=== PATIENT | female | born 1985 | race Caucasian/White ===

== ENCOUNTER 2016-07-23 19:57 | Emergency (ER) | payer MEDICAID ==
[2016-07-23] MEDS ORDERED: Sodium Chloride 0.9% 10 ML Syringe FLUSH PRN ×2 (20:54→21:14)
[2016-07-23] MEDS ORDERED: Ondansetron 4 MG/2 ML SDV IVPUSH ONE (20:59)
[2016-07-23] MEDS ORDERED: HYDROmorphone 1 MG/ML Syringe IVPUSH ONE (20:59)
[2016-07-23] MEDS ORDERED: Lactated Ringers 1,000 ML IV SCH (21:00)
--- NOTE | 2016-07-23 21:01 | EDM.PDOC ---
ED HPI GENERAL MEDICAL PROBLEM - General Chief Complaint: Fever Stated Complaint: FLANK PAIN Time Seen by Provider: 07/23/16 20:46 Source of Information: Reports: Patient, RN Notes Reviewed History Limitations: Reports: No Limitations - History of Present Illness INITIAL COMMENTS - FREE TEXT/NARRATIVE: 31-year-old female presents emergency department day complaint of right flank pain, she has a known history of nephrolithiasis has had lithotripsy and removal in the past, last CT scan earlier this year showed residual stones. For this particular event she states her last couple weeks she has had leg pain predominantly in the right she was trying to tolerate the pain push fluids awfully the past the stone unfortunately she woke up this morning significantly more pain and developed a fever does have nausea no vomiting normal bowel movements Bilateral Flank Pain Score (Numeric/FACES): 7 - Related Data Allergies Allergy/AdvReac Type Severity Reaction Status Date / Time No Known Allergies Allergy Verified 04/26/13 02:18 Home Meds: Home Meds Acetaminophen [Tylenol Extra Strength] 1,000 mg PO Q8H PRN 04/26/13 [History] Hydrocodone/Acetaminophen [Hydrocodon-Acetaminophen 5-325] 07/23/16 [History] Past Medical History [employer] History: Reports: - Infectious Disease History Infectious Disease History: Reports: Chicken Pox - Past Surgical History GI Surgical History: Reports: Cholecystectomy Other Endocrine Surgeries/Procedures: pituitary tumor Social & Family History - Tobacco Use Smoking Status *Q: Current Every Day Smoker Years of Tobacco use: 14 Packs/Tins Daily: 0.5 - Caffeine Use Caffeine Use: Reports: Soda - Alcohol Use Days Per Week of Alcohol Use: 0 - Recreational Drug Use Recreational Drug Use: No ED ROS GENERAL - Review of Systems Review Of Systems: See Below Constitutional: Reports: Fever, Chills HEENT: Reports: No Symptoms Respiratory: Reports: No Symptoms Cardiovascular: Reports: No Symptoms GI/Abdominal: Reports: Abdominal Pain, Nausea, Vomiting : Reports: Flank Pain Musculoskeletal: Reports: No Symptoms Skin: Reports: No Symptoms Neurological: Reports: No Symptoms ED EXAM, GI/ABD - Physical Exam Exam: See Below Text/Narrative:: General: Female, ill-appearing but not in any distress, alert and oriented x3 HEENT: head is atraumatic normocephalic, eyes pupils equal round reactive to light, sclera clear no conjunctivitis appreciated. Ears tympanic membranes clear and coffey landmarks and light reflex are present bilaterally canals are clear. Nose no septal deviation, nares are clear, no blood present. Mouth mucosa is moist and pink no erythema or exudate noted in soft palate, tongue is midline uvula is midline, dentition is intact. Neck: Supple no thyromegaly no tracheal deviation. Nodes: Cervical nodes subclavicular nodes nontender no palpable lymphadenopathy noted. Lungs: clear to auscultation bilaterally with symmetrical respirations, no adventitious noise appreciated. CV: Regular rate and rhythm S1 and S2 appreciated no murmurs rubs or gallops noted. Abdomen: Soft, generalized tenderness to palpation, no palpable masses or organomegaly appreciated, no distention no guarding bowel sounds are present, both right and left flank pain CVA area Neuro: Cranial nerves II through XII grossly intact Skin: Warm and dry, intact Extremities: No lower extremity edema appreciated, Course - Vital Signs Last Recorded V/S: Last Vital Signs Temp 101.2 F H 07/23/16 22:25 Pulse 93 07/23/16 22:25 Resp 17 07/23/16 22:25 BP 141/94 H 07/23/16 22:25 Pulse Ox 94 L 07/23/16 22:25 - Orders/Labs/Meds Orders: Active Orders 24 hr Category Date Time Status Peripheral IV Care [RC] . DIRECTED Care 07/23/16 20:54 Active Abdomen Pelvis w Cont [CT] Urgent Exams 07/23/16 20:54 Taken CULTURE BLOOD [BC] Urgent Lab 07/23/16 21:00 Received CULTURE BLOOD [BC] Urgent Lab 07/23/16 21:05 Received Iopamidol [Isovue-300 (61%)] Med 07/23/16 21:15 Active 150 ml IV . DIRECTED Lactated Ringers [Ringers, Lactated] 1,000 ml Med 07/23/16 21:00 Active IV ASDIRECTED Levofloxacin/Dextrose 5%-Water [Levaquin in D5W 750 MG/ Med 07/23/16 23:17 Ordered 150 ML] 750 mg Premix Bag 1 bag IV ONETIME Sodium Chloride 0.9% [Saline Flush] Med 07/23/16 20:54 Active 10 ml FLUSH ASDIRECTED PRN Sodium Chloride 0.9% [Saline Flush] Med 07/23/16 21:14 Active 10 ml FLUSH ONETIME PRN Blood Culture x2 Reflex Set [OM.PC] Urgent Oth 07/23/16 20:54 Ordered Peripheral IV Insertion Adult [OM.PC] Urgent Oth 07/23/16 20:54 Ordered Medication Orders Lactated Ringer's (Ringers, Lactated) 1,000 mls @ 500 mls/hr IV ASDIRECTED ERIC Last Admin: 07/23/16 21:12 Dose: 500 mls/hr Levofloxacin/Dextrose 750 mg/ (Premix) 150 mls @ 100 mls/hr IV ONETIME ONE Stop: 07/24/16 00:46 Iopamidol (Isovue-300 (61%)) 150 ml IV . DIRECTED ERIC Last Admin: 07/23/16 21:41 Dose: 150 ml Sodium Chloride (Saline Flush) 10 ml FLUSH ASDIRECTED PRN PRN Reason: Keep Vein Open Last Admin: 07/23/16 21:04 Dose: 10 ml Sodium Chloride (Saline Flush) 10 ml FLUSH ONETIME PRN PRN Reason: PER RADIOLOGY PROTOCOL Last Admin: 07/23/16 21:40 Dose: 10 ml Labs: Laboratory Tests 07/23/16 07/23/16 07/23/16 Range/Units 21:00 21:00 21:00 WBC 3.6 L (4.5-11.0) K/uL RBC 4.92 (3.30-5.50) M/uL Hgb 14.0 (12.0-15.0) g/dL Hct 40.2 (36.0-48.0) % MCV 82 (80-98) fL MCH 29 (27-31) pg MCHC 35 (32-36) % Plt Count 139 L (150-400) K/uL Neut % (Auto) 81 H (36-66) % Lymph % (Auto) 14 L (24-44) % [place] % (Auto) 5 (2-6) % Eos % (Auto) 0 L (2-4) % Baso % (Auto) 0 (0-1) % Sodium 137 L (140-148) mmol/L Potassium 3.5 L (3.6-5.2) mmol/L Chloride 102 (100-108) mmol/L Carbon Dioxide 28 (21-32) mmol/L Anion Gap 10.5 (5.0-14.0) mmol/L BUN 6 L (7-18) mg/dL Creatinine 0.8 (0.6-1.0) mg/dL Est Cr Clr Drug Dosing 87.99 mL/min Estimated GFR (MDRD) > 60 (>60) Glucose 97 (74-106) mg/dL Lactic Acid 2.3 H (0.4-2.0) mmol/L Calcium 8.4 L (8.5-10.1) mg/dL Total Bilirubin 0.4 (0.2-1.0) mg/dL AST 21 (15-37) U/L ALT 34 (12-78) U/L Alkaline Phosphatase 64 (46-116) U/L Total Protein 7.1 (6.4-8.2) g/dL Albumin 3.7 (3.4-5.0) g/dL Globulin 3.4 (2.3-3.5) g/dL Albumin/Globulin Ratio 1.1 L (1.2-2.2) Urine Color Urine Appearance Urine pH (4.5-8.0) Ur Specific [place] (1.008-1.030) Urine Protein (NEGATIVE) mg/dL Urine Glucose (UA) (NEGATIVE) mg/dL Urine Ketones (NEGATIVE) mg/dL Urine Occult Blood (NEGATIVE) Urine Nitrite (NEGATIVE) Urine Bilirubin (NEGATIVE) Urine Urobilinogen (NORMAL) mg/dL Ur Leukocyte Esterase (NEGATIVE) Urine RBC (0-5) Urine WBC (0-5) Ur Epithelial Cells Amorphous Sediment Urine Bacteria Urine Mucus 07/23/ Range/Units 21:05 WBC (4.5-11.0) K/uL RBC (3.30-5.50) M/uL Hgb (12.0-15.0) g/dL Hct (36.0-48.0) % MCV (80-98) fL MCH (27-31) pg MCHC (32-36) % Plt Count (150-400) K/uL Neut % (Auto) (36-66) % Lymph % (Auto) (24-44) % [place] % (Auto) (2-6) % Eos % (Auto) (2-4) % Baso % (Auto) (0-1) % Sodium (140-148) mmol/L Potassium (3.6-5.2) mmol/L Chloride (100-108) mmol/L Carbon Dioxide (21-32) mmol/L Anion Gap (5.0-14.0) mmol/L BUN (7-18) mg/dL Creatinine (0.6-1.0) mg/dL Est Cr Clr Drug Dosing mL/min Estimated GFR (MDRD) (>60) Glucose (74-106) mg/dL Lactic Acid (0.4-2.0) mmol/L Calcium (8.5-10.1) mg/dL Total Bilirubin (0.2-1.0) mg/dL AST (15-37) U/L ALT (12-78) U/L Alkaline Phosphatase (46-116) U/L Total Protein (6.4-8.2) g/dL Albumin (3.4-5.0) g/dL Globulin (2.3-3.5) g/dL Albumin/Globulin Ratio (1.2-2.2) Urine Color Yellow Urine Appearance Slightly cloudy Urine pH 7.0 (4.5-8.0) Ur Specific [place] 1.010 (1.008-1.030) Urine Protein Negative (NEGATIVE) mg/dL Urine Glucose (UA) Normal (NEGATIVE) mg/dL Urine Ketones Negative (NEGATIVE) mg/dL Urine Occult Blood Negative (NEGATIVE) Urine Nitrite Negative (NEGATIVE) Urine Bilirubin Negative (NEGATIVE) Urine Urobilinogen 1 (NORMAL) mg/dL Ur Leukocyte Esterase Negative (NEGATIVE) Urine RBC Not seen (0-5) Urine WBC 0-5 (0-5) Ur Epithelial Cells Moderate Amorphous Sediment Not seen Urine Bacteria Moderate Urine Mucus Few Meds: Medications Generic Name Dose Route Start Last Admin Trade Name Freq PRN Reason Stop Dose Admin Lactated Ringer's 1,000 mls @ 500 mls/hr 07/23/16 21:00 07/23/16 21:12 Ringers, Lactated IV 500 mls/hr ASDIRECTED ERIC Administration Levofloxacin/Dextrose 750 mg/ 150 mls @ 100 mls/hr 07/23/16 23:17 Premix IV 07/24/16 00:46 ONETIME ONE Iopamidol 150 ml 07/23/16 21:15 07/23/16 21:41 Isovue-300 (61%) IV 150 ml . DIRECTED ERIC Administration Sodium Chloride 10 ml 07/23/16 20:54 07/23/16 21:04 Saline Flush FLUSH 10 ml ASDIRECTED PRN Administration Keep Vein Open Sodium Chloride 10 ml 07/23/16 21:14 07/23/16 21:40 Saline Flush FLUSH 10 ml ONETIME PRN Administration PER RADIOLOGY PROTOCOL Discontinued Medications Generic Name Dose Route Start Last Admin Trade Name Freq PRN Reason Stop Dose Admin Acetaminophen 650 mg 07/23/16 21:04 07/23/16 21:11 Tylenol PO 07/23/16 21:05 650 mg NOW ONE Administration Hydromorphone HCl 1 mg 07/23/16 20:59 07/23/16 21:06 Dilaudid IVPUSH 07/23/16 21:00 1 mg ONETIME ONE Administration Sodium Chloride 85 mls @ 3 mls/sec 07/23/16 21:14 07/23/16 21:40 Normal Saline IV 07/23/16 21:15 3 mls/sec ONETIME ONE Administration Ondansetron HCl 4 mg 07/23/16 20:59 07/23/16 21:04 Zofran IVPUSH 07/23/16 21:00 4 mg ONETIME ONE Administration Departure - Departure Time of Disposition: 00:22 Disposition: Home, Self-Care 01 Condition: good Clinical Impression: Pyelonephritis - Discharge Information Forms: ED Department Discharge Additional Instructions: Take full course of antibiotics, use Zofran as needed for nausea and vomiting symptoms, use ibuprofen for baseline pain control use Percocet as needed for breakthrough pain, Please followup with your primary care provider in 3-5 days if not better, please call return to the emergency department with worsening of symptoms. - My Orders Last 24 Hours: My Active Orders 07/23/16 20:54 Peripheral IV Care [RC] . DIRECTED Abdomen Pelvis w Cont [CT] Urgent Sodium Chloride 0.9% [Saline Flush] 10 ml FLUSH ASDIRECTED PRN Blood Culture x2 Reflex Set [OM.PC] Urgent Peripheral IV Insertion Adult [OM.PC] Urgent 07/23/16 21:00 CULTURE BLOOD [BC] Urgent Lactated Ringers [Ringers, Lactated] 1,000 ml IV ASDIRECTED 07/23/16 21:05 CULTURE BLOOD [BC] Urgent 07/23/16 21:14 Sodium Chloride 0.9% [Saline Flush] 10 ml FLUSH ONETIME PRN 07/23/16 21:15 Iopamidol [Isovue-300 (61%)] 150 ml IV . DIRECTED 07/23/16 23:17 Levofloxacin/Dextrose 5%-Water [Levaquin in D5W 750 MG/150 ML] 750 mg Premix Bag 1 bag IV ONETIME - Assessment/Plan Last 24 Hours: My Active Orders 07/23/16 20:54 Peripheral IV Care [RC] . DIRECTED Abdomen Pelvis w Cont [CT] Urgent Sodium Chloride 0.9% [Saline Flush] 10 ml FLUSH ASDIRECTED PRN Blood Culture x2 Reflex Set [OM.PC] Urgent Peripheral IV Insertion Adult [OM.PC] Urgent 07/23/16 21:00 CULTURE BLOOD [BC] Urgent Lactated Ringers [Ringers, Lactated] 1,000 ml IV ASDIRECTED 07/23/16 21:05 CULTURE BLOOD [BC] Urgent 07/23/16 21:14 Sodium Chloride 0.9% [Saline Flush] 10 ml FLUSH ONETIME PRN 07/23/16 21:15 Iopamidol [Isovue-300 (61%)] 150 ml IV . DIRECTED 07/23/16 23:17 Levofloxacin/Dextrose 5%-Water [Levaquin in D5W 750 MG/150 ML] 750 mg Premix Bag 1 bag IV ONETIME Plan: Assessment Acuity = acute Site and laterality = suspicious for pyelonephritis on the right Etiology = probable bacterial cause Manifestations = none Location of injury = home Lab values = WBC low at 3.6 consistent with leukopenia platelets low at 139 consistent with a thrombocytopenia, sodium low at 137 consistent hyponatremia potassium low at 2.5 consistent hypokalemia lactic acid mildly elevated at 2.3 consistent lactic acidosis urinalysis unremarkable CT scan shows enlarged liver consistent fatty liver disease, multiple subcentimeter foci kidney bilaterally involving ovarian cyst right side small amount of free fluid the abdominal cavity Plan I did review lab results CT scan results with her offered her hospital admission she declined therefore did 750 mg levofloxacin IV x1 discharge home with levofloxacin 10 days combination Percocet total #10 tablets for pain and Zofran for nausea and vomiting symptoms follow up with primary care in 3-5 days for reevaluation Patient was in agreement with the plan all questions were answered, they were instructed to return to the emergency department or call for worsening symptoms. This note was dictated using dragon voice recognition software please call with any questions.
[2016-07-23] MEDS ORDERED: Acetaminophen 325 MG Tab PO ONE (21:04)
[2016-07-23] MEDS ORDERED: Iopamidol 612 MG/ML 150 ML Bottle IV SCH (21:15)
[2016-07-23] MEDS ORDERED: Levofloxacin/Dextrose 5%-Water 750 MG in Premix Bag 1 BAG IV ONE (23:17)
[2016-07-24 00:37] VITALS: BP 134/84
== END 2016-07-24 00:37 | disposition home or self-care (01) ==
LOC: JP.ED 19:57
DX: N12 Tubulo-interstitial nephritis, not specified as acute or chronic (principal); F17.210 Nicotine dependence, cigarettes, uncomplicated; Z90.49 Acquired absence of other specified parts of digestive tract; Z98.890 Other specified postprocedural states
CPT/HCPCS: 36415; 74177; 80053; 81001; 83605; 85025; 87040; 96361; 96365; 96375; 99284; A9270; J1170; J1956; J2405; J7030; J7050; J7120

== ENCOUNTER 2016-07-25 18:49 | Emergency (ER) | payer MEDICAID ==
[2016-07-25] MEDS ORDERED: Lactated Ringers 1,000 ML IV ONE (20:03)
[2016-07-25] MEDS ORDERED: Sodium Chloride 0.9% 10 ML Syringe FLUSH PRN (20:03)
--- NOTE | 2016-07-25 20:11 | EDM.PDOC ---
ED HPI GENERAL MEDICAL PROBLEM - General Chief Complaint: Abdominal Pain Stated Complaint: ABD PAIN VOMITING FEVER Time Seen by Provider: 07/25/16 19:53 Source of Information: Reports: Patient, Old Records, RN Notes Reviewed History Limitations: Reports: No Limitations - History of Present Illness INITIAL COMMENTS - FREE TEXT/NARRATIVE: 31-year-old female presents emergency department today for fever and not feeling well, she was evaluated in the emergency department 2 days prior by myself at that time she had fever and productive of right flank pain initially lab work did show elevated white count CT scan showed no pyelonephritis or kidney stone however she does have a history of urinary tract infections elected to treat her empirically with levofloxacin. She states she is not necessarily any worse but she is not better she still feels poorly still having fevers intermittent vomiting and generalized body aches and fatigue, she was evaluated in the clinic today felt to be dehydrated do to the vomiting was sent to the emergency department for further evaluation. 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: Psychiatric History: Reports: Anxiety, Depression, PTSD - Infectious Disease History Infectious Disease History: Reports: Chicken Pox - Past Surgical History GI Surgical History: Reports: Cholecystectomy Female Surgical History: Reports: Other (See Below) Other Female Surgeries/Procedures: partial hysterectomy kidney stone removal Other Endocrine Surgeries/Procedures: pituitary tumor Social & Family History - Tobacco Use Smoking Status *Q: Current Every Day Smoker Years of Tobacco use: 14 Packs/Tins Daily: 0.5 - Caffeine Use Caffeine Use: Reports: Soda - Alcohol Use Days Per Week of Alcohol Use: 0 - Recreational Drug Use Recreational Drug Use: No ED ROS GENERAL - Review of Systems Review Of Systems: See Below Constitutional: Reports: Fever, Chills, Weakness, Fatigue HEENT: Reports: No Symptoms Respiratory: Reports: No Symptoms Cardiovascular: Reports: No Symptoms GI/Abdominal: Reports: Abdominal Pain, Diarrhea, Flatus, Vomiting : Reports: No Symptoms Musculoskeletal: Reports: Muscle Pain Skin: Reports: No Symptoms Neurological: Reports: No Symptoms Psychiatric: Reports: No Symptoms ED EXAM, GENERAL - Physical Exam Exam: See Below Free Text/Narrative:: General: Female, not in any distress, alert and oriented x3 HEENT: head is atraumatic normocephalic, eyes pupils equal round reactive to light, sclera clear no conjunctivitis appreciated. Ears tympanic membranes clear and coffey landmarks and light reflex are present bilaterally canals are clear. Nose no septal deviation, nares are clear, no blood present. Mouth mucosa is moist and pink no erythema or exudate noted in soft palate, tongue is midline uvula is midline, dentition is intact. Neck: Supple no thyromegaly no tracheal deviation. Nodes: Cervical nodes subclavicular nodes nontender no palpable lymphadenopathy noted. Lungs: clear to auscultation bilaterally with symmetrical respirations, no adventitious noise appreciated. CV: Regular rate and rhythm S1 and S2 appreciated no murmurs rubs or gallops noted. Abdomen: Soft, generalized tenderness to palpation but not impressive, no palpable masses or organomegaly appreciated, no distention no guarding bowel sounds are present, . Neuro: Cranial nerves II through XII grossly intact Skin: Warm and dry, intact Extremities: No lower extremity edema appreciated, pedal pulse is +2. Course - Vital Signs Last Recorded V/S: Last Vital Signs Temp 96.3 F 07/25/16 21:18 Pulse 69 07/25/16 22:15 Resp 16 07/25/16 22:15 BP 148/102 H 07/25/16 22:15 Pulse Ox 97 07/25/16 22:15 - Orders/Labs/Meds Orders: Active Orders 24 hr Category Date Time Status Peripheral IV Care [RC] . DIRECTED Care 07/25/16 20:03 Active CULTURE BLOOD [BC] Stat Lab 07/25/16 20:02 Stop Req Sodium Chloride 0.9% [Saline Flush] Med 07/25/16 20:03 Active 10 ml FLUSH ASDIRECTED PRN Peripheral IV Insertion Adult [OM.PC] Urgent Oth 07/25/16 20:03 Ordered Medication Orders Sodium Chloride (Saline Flush) 10 ml FLUSH ASDIRECTED PRN PRN Reason: Keep Vein Open Last Admin: 07/25/16 20:17 Dose: 10 ml Labs: Laboratory Tests 07/25/16 07/25/16 07/25/16 Range/Units 20:02 20:02 20:02 WBC 3.3 L (4.5-11.0) K/uL RBC 5.20 (3.30-5.50) M/uL Hgb 14.7 (12.0-15.0) g/dL Hct 42.2 (36.0-48.0) % MCV 81 (80-98) fL MCH 28 (27-31) pg MCHC 35 (32-36) % Plt Count 126 L (150-400) K/uL Neut % (Auto) 57 (36-66) % Lymph % (Auto) 29 (24-44) % [place] % (Auto) 9 H (2-6) % Eos % (Auto) 2 (2-4) % Baso % (Auto) 3 H (0-1) % Sodium 143 (140-148) mmol/L Potassium 3.4 L (3.6-5.2) mmol/L Chloride 103 (100-108) mmol/L Carbon Dioxide 31 (21-32) mmol/L Anion Gap 12.4 (5.0-14.0) mmol/L BUN 9 (7-18) mg/dL Creatinine 0.8 (0.6-1.0) mg/dL Est Cr Clr Drug Dosing 87.99 mL/min Estimated GFR (MDRD) > 60 (>60) Glucose 90 (74-106) mg/dL Lactic Acid 1.1 (0.4-2.0) mmol/L Calcium 9.3 (8.5-10.1) mg/dL Total Bilirubin 0.5 (0.2-1.0) mg/dL AST 34 (15-37) U/L ALT 60 D (12-78) U/L Alkaline Phosphatase 78 (46-116) U/L Creatine Kinase (26-192) U/L C-Reactive Protein 2.27 H (0.0-0.3) mg/dL Total Protein 7.8 (6.4-8.2) g/dL Albumin 4.1 (3.4-5.0) g/dL Globulin 3.7 H (2.3-3.5) g/dL Albumin/Globulin Ratio 1.1 L (1.2-2.2) TSH, Ultra Sensitive (0.358-3.740) uIU/mL Urine Color Urine Appearance Urine pH (4.5-8.0) Ur Specific [place] (1.008-1.030) Urine Protein (NEGATIVE) mg/dL Urine Glucose (UA) (NEGATIVE) mg/dL Urine Ketones (NEGATIVE) mg/dL Urine Occult Blood (NEGATIVE) Urine Nitrite (NEGATIVE) Urine Bilirubin (NEGATIVE) Urine Urobilinogen (NORMAL) mg/dL Ur Leukocyte Esterase (NEGATIVE) Urine RBC (0-5) Urine WBC (0-5) Ur Epithelial Cells Amorphous Sediment Urine Bacteria Urine Mucus Urine Other 07/25/16 07/25/16 07/25/16 Range/Units 20:02 20:06 20:13 WBC (4.5-11.0) K/uL RBC (3.30-5.50) M/uL Hgb (12.0-15.0) g/dL Hct (36.0-48.0) % MCV (80-98) fL MCH (27-31) pg MCHC (32-36) % Plt Count (150-400) K/uL Neut % (Auto) (36-66) % Lymph % (Auto) (24-44) % [place] % (Auto) (2-6) % Eos % (Auto) (2-4) % Baso % (Auto) (0-1) % Sodium (140-148) mmol/L Potassium (3.6-5.2) mmol/L Chloride (100-108) mmol/L Carbon Dioxide (21-32) mmol/L Anion Gap (5.0-14.0) mmol/L BUN (7-18) mg/dL Creatinine (0.6-1.0) mg/dL Est Cr Clr Drug Dosing mL/min Estimated GFR (MDRD) (>60) Glucose (74-106) mg/dL Lactic Acid (0.4-2.0) mmol/L Calcium (8.5-10.1) mg/dL Total Bilirubin (0.2-1.0) mg/dL AST (15-37) U/L ALT (12-78) U/L Alkaline Phosphatase (46-116) U/L Creatine Kinase 53 (26-192) U/L C-Reactive Protein (0.0-0.3) mg/dL Total Protein (6.4-8.2) g/dL Albumin (3.4-5.0) g/dL Globulin (2.3-3.5) g/dL Albumin/Globulin Ratio (1.2-2.2) TSH, Ultra Sensitive 8.799 H (0.358-3.740) uIU/mL Urine Color [place] Urine Appearance Cloudy Urine pH 6.0 (4.5-8.0) Ur Specific [place] 1.020 (1.008-1.030) Urine Protein 30 H (NEGATIVE) mg/dL Urine Glucose (UA) Normal (NEGATIVE) mg/dL Urine Ketones Negative (NEGATIVE) mg/dL Urine Occult Blood Negative (NEGATIVE) Urine Nitrite Negative (NEGATIVE) Urine Bilirubin Small (NEGATIVE) Urine Urobilinogen 8 (NORMAL) mg/dL Ur Leukocyte Esterase Small (NEGATIVE) Urine RBC 0-5 (0-5) Urine WBC 0-5 (0-5) Ur Epithelial Cells Few Amorphous Sediment Few Urine Bacteria Few Urine Mucus Numerous Urine Other See note Meds: Medications Generic Name Dose Route Start Last Admin Trade Name Freq PRN Reason Stop Dose Admin Sodium Chloride 10 ml 07/25/16 20:03 07/25/16 20:17 Saline Flush FLUSH 10 ml ASDIRECTED PRN Administration Keep Vein Open Discontinued Medications Generic Name Dose Route Start Last Admin Trade Name Freq PRN Reason Stop Dose Admin Lactated Ringer's 1,000 mls @ 999 mls/hr 07/25/16 20:03 07/25/16 20:17 Ringers, Lactated IV 07/25/16 21:03 999 mls/hr BOLUS ONE Administration Doxycycline Hyclate 100 mg/ 100 mls @ 100 mls/hr 07/25/16 21:52 07/25/16 22: 20 Sodium Chloride IV 07/25/16 22:51 100 mls/hr ONETIME ONE Administration Ketorolac Tromethamine 30 mg 07/25/16 21:51 07/25/16 22:20 Toradol IVPUSH 07/25/16 21:52 30 mg ONETIME ONE Administration Departure - Departure Time of Disposition: 23:46 Disposition: Home, Self-Care 01 Condition: good Clinical Impression: Tick-borne disease - Discharge Information Forms: ED Department Discharge Additional Instructions: stop levofloxacin, take full course of doxycycline, Please followup with your primary care provider in 3-5 days if not better, please call return to the emergency department with worsening of symptoms. - My Orders Last 24 Hours: My Active Orders 07/25/16 20:02 CULTURE BLOOD [BC] Stat 07/25/16 20:03 Peripheral IV Care [RC] . DIRECTED Sodium Chloride 0.9% [Saline Flush] 10 ml FLUSH ASDIRECTED PRN Peripheral IV Insertion Adult [OM.PC] Urgent - Assessment/Plan Last 24 Hours: My Active Orders 07/25/16 20:02 CULTURE BLOOD [BC] Stat 07/25/16 20:03 Peripheral IV Care [RC] . DIRECTED Sodium Chloride 0.9% [Saline Flush] 10 ml FLUSH ASDIRECTED PRN Peripheral IV Insertion Adult [OM.PC] Urgent Plan: Assessment Acuity = acute Site and laterality = suspicious for tickborne illness Etiology = possibly anaplasmosis Manifestations = body aches, fever, nausea, vomiting, diarrhea Location of injury = home Lab values = WBC low at 3.3 consistent with leukopenia potassium low at 3.4 consistent with hypokalemia CMP mildly elevated 2.27 thyroid abnormal of the high at 8.8 suspicious for hypothyroidism Plan I did discuss lab values with her she was given 1 dose of doxycycline IV as well as 30 mg of Toradol she felt and improvement with the body aches with Toradol I did discuss hospital admission can she declined Will try outpatient antibiotics follow up with primary care 3-5 days no improvement, doxycycline 14 days Patient was in agreement with the plan all questions were answered, they were instructed to return to the emergency department or call for worsening symptoms. This note was dictated using [employer] voice recognition software please call with any questions.
[2016-07-25] MEDS ORDERED: Ketorolac 30 MG/ML SDV IVPUSH ONE (21:51)
[2016-07-25] MEDS ORDERED: Doxycycline 100 MG in Sodium Chloride 0.9% 100 ML IV ONE (21:52)
[2016-07-26 00:56] VITALS: BP 154/103
== END 2016-07-26 00:08 | disposition home or self-care (01) ==
LOC: JP.ED 18:49
DX: A93.8 Other specified arthropod-borne viral fevers (principal); F17.210 Nicotine dependence, cigarettes, uncomplicated; Z90.49 Acquired absence of other specified parts of digestive tract; Z90.710 Acquired absence of both cervix and uterus; F43.10 Post-traumatic stress disorder, unspecified
CPT/HCPCS: 36415; 80053; 81001; 82550; 83605; 84443; 85025; 86140; 87040; 87804; 96361; 96365; 96375; 99284; J1885; J7030; J7050; J7120

== ENCOUNTER 2018-02-28 12:44 | Emergency (ER) | payer MEDICAID ==
--- NOTE | 2018-02-28 14:26 | EDM.PDOC ---
<Fatmata Warner - Last Filed: 02/28/18 17:44> ED HPI GENERAL MEDICAL PROBLEM - General Chief Complaint: Cardiovascular Problem Stated Complaint: NAUSEOUS, HBP, HEADACHE, DIZZY Time Seen by Provider: 02/28/18 14:29 Source of Information: Reports: Patient History Limitations: Reports: No Limitations - History of Present Illness INITIAL COMMENTS - FREE TEXT/NARRATIVE: pt was seen at the clinic yesterday with a tooth infection. She was placed on augmentin and tramodol. She woke up this am and she was very nauseated and dixxy. She felt like the room was spinning. Her bp was up at the clinic and it continues to be up. Onset: Today, Sudden Duration: Hour(s): Location: Reports: Abdomen, Other (pt has vertigo. ) Associated Symptoms: Reports: Nausea/Vomiting, Other ( vertigo. 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: Neurological History: Reports: Migraines, Seizure Psychiatric History: Reports: Anxiety, Depression, PTSD, Suicide Attempt - Infectious Disease History Infectious Disease History: Reports: Chicken Pox - Past Surgical History GI Surgical History: Reports: Cholecystectomy Female Surgical History: Reports: Other (See Below) Other Female Surgeries/Procedures: partial hysterectomy kidney stone removal Other Endocrine Surgeries/Procedures: pituitary tumor Social & Family History - Tobacco Use Smoking Status *Q: Current Every Day Smoker Years of Tobacco use: 16 Packs/Tins Daily: 0.5 - Caffeine Use Caffeine Use: Reports: Soda - Recreational Drug Use Recreational Drug Use: No ED ROS GENERAL - Review of Systems Review Of Systems: See Below Constitutional: Reports: Decreased Appetite, Other (pt has been vomiting. ) HEENT: Reports: No Symptoms Respiratory: Reports: No Symptoms Cardiovascular: Reports: No Symptoms Endocrine: Reports: No Symptoms GI/Abdominal: Reports: Nausea, Vomiting, Other (marked vertigo. ) : Reports: No Symptoms Musculoskeletal: Reports: No Symptoms Skin: Reports: No Symptoms Neurological: Reports: Headache Psychiatric: Reports: Anxiety ED EXAM, GENERAL - Physical Exam Exam: See Below Free Text/Narrative:: pt arrived with a history of marked vomiting and vertigo. She states each time she turns her hesd her headache gets bad and the room spins. She has had a pituitary tumor in the past. She did not take her bp med this am because of the vomiting. Exam Limited By: No Limitations General Appearance: Alert, Moderate Distress, Other (pupils are equal and reactive. ) Ears: Normal TMs Nose: Normal Inspection Throat/Mouth: Other (pt has an infection in her rt upper molar area. Yesterday she was put on augmentin and trasmodol. She was very dizzy and she was violently vomiting this am. Her bp was up at the clinic yesterday and it remains up today. ) Head: Atraumatic Neck: Normal Inspection Respiratory/Chest: No Respiratory Distress Cardiovascular: Regular Rate, Rhythm GI/Abdominal: Soft, Non-Tender (Female) Exam: Deferred Rectal (Female) Exam: Deferred Back Exam: Normal Inspection Extremities: Normal Inspection Neurological: Alert, Oriented, Normal Cognition Psychiatric: Anxious Course - Vital Signs Last Recorded V/S: Last Vital Signs Temp 36.1 C 02/28/18 13:50 Pulse 82 02/28/18 18:12 Resp 16 02/28/18 18:12 BP 140/89 02/28/18 18:12 Pulse Ox 95 02/28/18 18:12 - Orders/Labs/Meds Orders: Active Orders 24 hr Category Date Time Status Head wo Cont [CT] Stat Exams 02/28/18 16:57 Taken Sodium Chloride 0.9% [Normal Saline] 1,000 ml Med 02/28/18 14:30 Active IV ASDIRECTED Medication Orders Sodium Chloride (Normal Saline) 1,000 mls @ 999 mls/hr IV ASDIRECTED ERIC Last Admin: 02/28/18 14:58 Dose: 999 mls/hr Labs: Laboratory Tests 02/28/18 02/28/18 02/28/18 Range/Units 14:29 14:29 18:12 WBC 9.9 (4.5-11.0) K/uL RBC 5.22 (3.30-5.50) M/uL Hgb 14.9 (12.0-15.0) g/dL Hct 42.2 (36.0-48.0) % MCV 81 (80-98) fL MCH 29 (27-31) pg MCHC 35 (32-36) % Plt Count 248 (150-400) K/uL Neut % (Auto) 87 H (36-66) % Lymph % (Auto) 8 L (24-44) % Becker % (Auto) 4 (2-6) % Eos % (Auto) 1 L (2-4) % Baso % (Auto) 0 (0-1) % Sodium 140 (140-148) mmol/L Potassium 3.6 (3.6-5.2) mmol/L Chloride 100 (100-108) mmol/L Carbon Dioxide 30 (21-32) mmol/L Anion Gap 10.0 (5.0-14.0) mmol/L BUN 8 (7-18) mg/dL Creatinine 0.8 (0.6-1.0) mg/dL Est Cr Clr Drug Dosing 87.18 mL/min Estimated GFR (MDRD) > 60 (>60) Glucose 110 H (74-106) mg/dL Calcium 9.4 (8.5-10.1) mg/dL Total Bilirubin 0.5 (0.2-1.0) mg/dL AST 33 (15-37) U/L ALT 67 (12-78) U/L Alkaline Phosphatase 71 (46-116) U/L C-Reactive Protein 1.90 H (0.0-0.3) mg/dL Total Protein 7.6 (6.4-8.2) g/dL Albumin 3.9 (3.4-5.0) g/dL Globulin 3.7 H (2.3-3.5) g/dL Albumin/Globulin Ratio 1.1 L (1.2-2.2) Meds: Medications Generic Name Dose Route Start Last Admin Trade Name Freq PRN Reason Stop Dose Admin Sodium Chloride 1,000 mls @ 999 mls/hr 02/28/18 14:30 02/28/18 14:58 Normal Saline IV 999 mls/hr ASDIRECTED ERIC Administration Discontinued Medications Generic Name Dose Route Start Last Admin Trade Name Mario PRN Reason Stop Dose Admin Hydromorphone HCl 0.5 mg 02/28/18 16:39 02/28/18 16:48 Dilaudid IVPUSH 02/28/18 16:40 0.5 mg ONETIME ONE Administration Ceftriaxone Sodium 1 gm/ 50 mls @ 100 mls/hr 02/28/18 14:28 02/28/18 14:58 Sodium Chloride IV 02/28/18 14:57 100 mls/hr ONETIME ONE Administration Ketorolac Tromethamine 30 mg 02/28/18 15:26 02/28/18 15:35 Toradol IVPUSH 02/28/18 15:27 30 mg ONETIME ONE Administration Lorazepam 0.5 mg 02/28/18 14:27 02/28/18 14:59 Ativan IVPUSH 02/28/18 14:28 0.5 mg ONETIME ONE Administration Meclizine HCl 25 mg 02/28/18 15:22 02/28/18 15:35 Antivert PO 02/28/18 15:23 25 mg ONETIME ONE Administration Metoprolol Succinate 50 mg 02/28/18 17:31 02/28/18 17:37 Toprol Xl PO 02/28/18 17:32 50 mg ONETIME ONE Administration Ondansetron HCl 4 mg 02/28/18 14:27 02/28/18 14:59 Zofran IVPUSH 02/28/18 14:28 4 mg ONETIME ONE Administration Ondansetron HCl 4 mg 02/28/18 16:11 02/28/18 16:20 Zofran IVPUSH 02/28/18 16:12 4 mg ONETIME ONE Administration Departure - Departure Disposition: Home, Self-Care 01 Clinical Impression: Vertigo Sinusitis Qualifiers: Sinusitis location: unspecified location Chronicity: acute Recurrence: non- recurrent Qualified Code(s): J01.90 - Acute sinusitis, unspecified Headache Qualifiers: Headache type: unspecified Headache chronicity pattern: acute headache Intractability: not intractable Qualified Code(s): R51 - Headache Instructions: Sinusitis, Adult, [id number], Vertigo, [id number] Referrals: Sophie Unger NP [Primary Care Provider] - Forms: ED Department Discharge <Alvarez Muñiz - Last Filed: 02/28/18 18:58> Course - Vital Signs Text/Narrative:: Feeling good enough to try it at home. Departure - Departure Time of Disposition: 19:00 Condition: Fair
[2018-02-28] MEDS ORDERED: Ondansetron 4 MG/2 ML SDV IVPUSH ONE ×2 (14:27→16:11)
[2018-02-28] MEDS ORDERED: LORazepam 2 MG/ML SDV IVPUSH ONE (14:27)
[2018-02-28] MEDS ORDERED: cefTRIAXone 1 GM in Sodium Chloride 0.9% 50 ML IV ONE (14:28)
[2018-02-28] MEDS ORDERED: Sodium Chloride 0.9% 1,000 ML IV SCH (14:30)
[2018-02-28] MEDS ORDERED: Meclizine 25 MG Tab PO ONE (15:22)
[2018-02-28] MEDS ORDERED: Ketorolac 30 MG/ML SDV IVPUSH ONE (15:26)
[2018-02-28] MEDS ORDERED: HYDROmorphone 0.5 MG/0.5 ML Syringe IVPUSH ONE (16:39)
[2018-02-28] MEDS ORDERED: Metoprolol Succinate 50 MG Tab.ER PO ONE (17:31)
[2018-02-28 18:13] VITALS: BP 140/89
== END 2018-02-28 19:07 | disposition home or self-care (01) ==
LOC: JP.ED 12:44
DX: J01.90 Acute sinusitis, unspecified (principal); R51 Headache; R42 Dizziness and giddiness; I10 Essential (primary) hypertension; F17.210 Nicotine dependence, cigarettes, uncomplicated; Z79.899 Other long term (current) drug therapy
CPT/HCPCS: 36415; 70450; 80053; 85025; 86140; 96365; 96375; 96376; 99284; A9270; J0696; J1170; J1885; J2060; J2405; J7030; J7050

== ENCOUNTER 2018-03-06 22:32 | Emergency (ER) | payer MEDICAID ==
--- NOTE | 2018-03-06 23:25 | EDM.PDOC ---
ED HPI GENERAL MEDICAL PROBLEM - General Chief Complaint: Chest Pain Stated Complaint: CHEST PAINS Time Seen by Provider: 03/06/18 22:45 Source of Information: Reports: Patient, Family History Limitations: Reports: No Limitations - History of Present Illness INITIAL COMMENTS - FREE TEXT/NARRATIVE: 32-year-old female with some very nonspecific unusual symptoms of nausea, headache, left sided paresthesias and dizziness with intermittent chest pains for the past several weeks. Tonight she was having more chest pain than usual and came into the emergency room. She also feels short of breath with activity. She has hypertension, has been treated for since she was young and her blood pressures are running higher this week than normal. The chest pains are brief, running 30-40 seconds and 10 to be left anterior. She was in the emergency room 6 days ago with similar symptoms, and had a fairly complete workup. She is diagnosed with sinusitis and vertigo. A normal head CT other than sinusitis was done. 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 (see below) Other Treatments PAYROLL TAX SPECIALIST: Antibiotic, BP med Mid Chest Pain Score (Numeric/FACES): 6 - Related Data Allergies Allergy/AdvReac Type Severity Reaction Status Date / Time No Known Allergies Allergy Verified 03/06/18 22:43 Home Meds: Home Meds Amoxicillin/Clavulanate K [Augmentin 875-125 MG] 1 tab PO BID 02/28/18 [History] Metoprolol Succinate [Toprol Xl] 50 mg PO DAILY 02/28/18 [History] Past Medical History HEENT History: Reports: Other (See Below) Other HEENT History: dental abcess Cardiovascular History: Reports: Hypertension Gastrointestinal History: Reports: Cholelithiasis 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 SERVICES WORKER History: menorrhagia with irregular cycle Neurological History: Reports: Migraines, Seizure Psychiatric History: Reports: Anxiety, Depression, PTSD, Suicide Attempt Endocrine/Metabolic History: Reports: Obesity/BMI 30+ - Infectious Disease History Infectious Disease History: Reports: Chicken Pox - Past Surgical History GI Surgical History: Reports: Cholecystectomy Female Surgical History: Reports: Other (See Below) Other Female Surgeries/Procedures: partial hysterectomy kidney stone removal Endocrine Surgical History: Reports: Other (See Below) Other Endocrine Surgeries/Procedures: pituitary tumor Social & Family History - Tobacco Use Smoking Status *Q: Current Every Day Smoker Years of Tobacco use: 15 Packs/Tins Daily: 0.5 Second Hand Smoke Exposure: Yes - Caffeine Use Caffeine Use: Reports: Soda - Recreational Drug Use Recreational Drug Use: No ED ROS GENERAL - Review of Systems Review Of Systems: See Below Constitutional: Reports: Decreased Appetite, Weight Loss. Denies: Fever, Chills HEENT: Reports: Sinus Problem (Recent diagnosis of sinusitis). Denies: Ear Pain Respiratory: Reports: Shortness of Breath Cardiovascular: Reports: Chest Pain (Especially with activity brief recurring small bouts of chest pain) GI/Abdominal: Denies: Nausea, Vomiting Skin: Reports: No Symptoms Neurological: Reports: Headache (Especially left-sided) Psychiatric: Reports: Anxiety ED EXAM, GENERAL - Physical Exam Exam: See Below Exam Limited By: No Limitations General Appearance: Alert, No Apparent Distress Eye Exam: Bilateral Eye: Normal Inspection Head: Atraumatic Neck: Normal Inspection Respiratory/Chest: No Respiratory Distress, Lungs Clear Cardiovascular: Regular Rate, Rhythm GI/Abdominal: Soft, Tender (Reacts with tenderness to palpation in the epigastric area, no guarding) Extremities: Normal Inspection. No: Pedal Edema Neurological: Alert, Oriented Skin Exam: Warm, Dry EKG INTERPRETATION EKG Date: 03/06/18 Rhythm: NSR Course - Vital Signs Last Recorded V/S: Last Vital Signs Temp 96.8 F 03/06/18 22:37 Pulse 88 03/07/18 00:35 Resp 14 03/07/18 00:35 BP 181/114 H 03/07/18 00:35 Pulse Ox 98 03/07/18 00:35 - Orders/Labs/Meds Orders: Active Orders 24 hr Category Date Time Status EKG Documentation Completion [RC] ASDIRECTED Care 03/06/18 23:02 Active Chest 2V [CR] Routine Exams 03/06/18 23:03 Taken Saline Lock Insert [OM.PC] Routine Oth 03/06/18 23:31 Ordered EKG 12 Lead [EK] Routine Ther 03/06/18 23:01 Ordered Labs: Laboratory Tests 03/06/18 03/06/18 03/06/18 Range/Units 23:15 23:15 23:15 ESR (0-25) mm/hr Puncture Site L brachial ABG pH 7.525 H (7.350-7.450) ABG pCO2 30.8 L (35.0-42.0) mmHg ABG pO2 66.6 L (75.0-100.0) mmHg ABG HCO3 25.3 (22.0-26.0) mmol/L ABG Total CO2 21.7 (21.0-25.0) mmol/L ABG O2 Saturation 95.1 (95.0-98.0) % ABG O2 Content 18.1 (15.0-23.0) %vol ABG Base Excess 3.5 mm/L ABG Hemoglobin 14.1 (12.0-16.0) g/dL ABG Oxyhemoglobin 91.3 % ABG Carboxyhemoglobin 3.4 H (0.0-1.6) % ABG Methemoglobin 0.6 % O2 Delivery Device Room air Sodium 140 (140-148) mmol/L Potassium 3.4 L (3.6-5.2) mmol/L Chloride 102 (100-108) mmol/L Carbon Dioxide 25 (21-32) mmol/L Anion Gap 16.4 H (5.0-14.0) mmol/L BUN 9 (7-18) mg/dL Creatinine 0.7 (0.6-1.0) mg/dL Est Cr Clr Drug Dosing 99.63 mL/min Estimated GFR (MDRD) > 60 (>60) Glucose 122 H (74-106) mg/dL Calcium 9.4 (8.5-10.1) mg/dL Troponin I < 0.017 (0.000-0.056) ng/mL 03/06/18 Range/Units 23:15 ESR 11 (0-25) mm/hr Puncture Site ABG pH (7.350-7.450) ABG pCO2 (35.0-42.0) mmHg ABG pO2 (75.0-100.0) mmHg ABG HCO3 (22.0-26.0) mmol/L ABG Total CO2 (21.0-25.0) mmol/L ABG O2 Saturation (95.0-98.0) % ABG O2 Content (15.0-23.0) %vol ABG Base Excess mm/L ABG Hemoglobin (12.0-16.0) g/dL ABG Oxyhemoglobin % ABG Carboxyhemoglobin (0.0-1.6) % ABG Methemoglobin % O2 Delivery Device Sodium (140-148) mmol/L Potassium (3.6-5.2) mmol/L Chloride (100-108) mmol/L Carbon Dioxide (21-32) mmol/L Anion Gap (5.0-14.0) mmol/L BUN (7-18) mg/dL Creatinine (0.6-1.0) mg/dL Est Cr Clr Drug Dosing mL/min Estimated GFR (MDRD) (>60) Glucose (74-106) mg/dL Calcium (8.5-10.1) mg/dL Troponin I (0.000-0.056) ng/mL Meds: Medications Discontinued Medications Generic Name Dose Route Start Last Admin Trade Name Freq PRN Reason Stop Dose Admin Labetalol HCl 20 mg 03/06/18 23:31 03/07/18 00:01 Normodyne IVPUSH 03/06/18 23:32 Not Given ONETIME ONE Protocol Labetalol HCl Confirm 03/06/18 23:38 03/06/18 23:54 Normodyne Administered 03/06/18 23:39 20 mg Dose Administration 20 mg .ROUTE .STK-MED ONE Labetalol HCl 20 mg 03/06/18 23:44 03/06/18 23:54 Normodyne IVPUSH 03/06/18 23:45 20 mg ONETIME ONE Administration Protocol Sodium Chloride 10 ml 03/06/18 23:31 03/06/18 23:50 Saline Flush FLUSH 10 ml ASDIRECTED PRN Administration Keep Vein Open - Re-Assessments/Exams Free Text/Narrative Re-Assessment/Exam: 03/06/18 23:24 An EKG was done which was completely normal. I reviewed the patient's records from 6 days ago and it was a fairly complete workup. I asked her if she's been feeling poorly continuously since being seen, when her commented she felt "good last night". It turns out she went out with friends to the [place] and played bingo so she must have been feeling fairly normal. A BMP was repeated , ABGs, two-view chest x-ray, sedimentation rate and troponin were obtained. 03/06/18 23:32 While waiting for labs, blood pressure was done and it was 209/111. A saline lock was then done and 20 mg of IV labetalol ordered. 03/07/18 00:16 Two-view chest x-ray was normal. ABG showed a low CO2 an alkalosis, but also mildly decreased PO2. Sedimentation rate was normal, chemistry profile normal. Troponin was 0. After the 20 mg of IV labetalol patient's blood pressure improved to 170/100. She'll be discharged, informed to increase her metoprolol to twice daily and return on Friday if not improving. At that time we'll consider a chest CT to rule out PE or hospitalization until her blood pressure is under control. She can return sooner if worsening. Departure - Departure Time of Disposition: 00:41 Disposition: Home, Self-Care 01 Condition: Good Clinical Impression: Headache Qualifiers: Headache type: unspecified Headache chronicity pattern: acute headache Intractability: not intractable Qualified Code(s): R51 - Headache Hypertension Qualifiers: Hypertension type: essential hypertension Qualified Code(s): I10 - Essential ( primary) hypertension - Discharge Information Instructions: Managing Your Hypertension Referrals: PCP,None [Primary Care Provider] - Forms: ED Department Discharge Care Plan Goals: Avoid any extra salt intake, take metoprolol twice daily, and recheck on Friday if not improving satisfactorily. Return sooner if you feel you're worsening despite the increase in medication. - My Orders Last 24 Hours: My Active Orders 03/06/18 23:01 EKG 12 Lead [EK] Routine 03/06/18 23:02 EKG Documentation Completion [RC] ASDIRECTED 03/06/18 23:03 Chest 2V [CR] Routine 03/06/18 23:31 Saline Lock Insert [OM.PC] Routine - Assessment/Plan Last 24 Hours: My Active Orders 03/06/18 23:01 EKG 12 Lead [EK] Routine 03/06/18 23:02 EKG Documentation Completion [RC] ASDIRECTED 03/06/18 23:03 Chest 2V [CR] Routine 03/06/18 23:31 Saline Lock Insert [OM.PC] Routine
[2018-03-06] MEDS ORDERED: Labetalol 100 MG/20 ML MDV IVPUSH ONE ×2 (23:31→23:44)
[2018-03-06] MEDS ORDERED: Sodium Chloride 0.9% 10 ML Syringe FLUSH PRN (23:31)
[2018-03-06] MEDS: Labetalol 20 MG/4 ML Syringe ONE ×2 (23:53→23:54)
[2018-03-07 00:35] VITALS: BP 181/114
--- NOTE | 2018-03-09 09:05 | CR ---
CHEST: 2 view CLINICAL HISTORY:Dyspnea COMPARISON:2007 FINDINGS: The heart size, pulmonary vascular and hilar structures are normal. No infiltrate effusion or pneumothorax is seen. IMPRESSION: No acute cardiopulmonary process.
== END 2018-03-07 00:46 | disposition home or self-care (01) ==
LOC: JP.ED 22:32
DX: I10 Essential (primary) hypertension (principal); R51 Headache; E66.9 Obesity, unspecified; F17.210 Nicotine dependence, cigarettes, uncomplicated
CPT/HCPCS: 36415; 36600; 71046; 80048; 82803; 84484; 85651; 93005; 96374; 99285; J3490

== ENCOUNTER 2018-09-03 10:33 | Emergency (ER) | payer MEDICAID ==
[2018-09-03] MEDS ORDERED: Metoprolol Tartrate 50 MG Tab PO ONE (11:12)
[2018-09-03] MEDS ORDERED: Ketorolac 60 MG/2 ML SDV IM ONE (11:12)
[2018-09-03] MEDS ORDERED: Hydrochlorothiazide/Triamterene 25-37.5 Tab PO ONE (11:13)
[2018-09-03] MEDS ORDERED: Ondansetron 4 MG Tab.DIS PO ONE (11:13)
[2018-09-03] MEDS ORDERED: Prochlorperazine 10 MG/2 ML SDV IVPUSH ONE (11:15)
[2018-09-03] MEDS ORDERED: Ketorolac 30 MG/ML SDV IVPUSH ONE (11:15)
[2018-09-03] MEDS ORDERED: Lactated Ringers 1,000 ML IV SCH (11:15)
[2018-09-03] MEDS ORDERED: diphenhydrAMINE 50 MG/ML SDV IVPUSH ONE (11:15)
--- NOTE | 2018-09-03 11:19 | EDM.PDOC ---
ED HPI GENERAL MEDICAL PROBLEM - General Chief Complaint: Headache Stated Complaint: HEADACHE, SWOLLEN NECK RIGHT SIDE FACIAL ISSUES Time Seen by Provider: 09/03/18 11:05 Source of Information: Reports: Patient, Old Records, RN History Limitations: Reports: No Limitations - History of Present Illness INITIAL COMMENTS - FREE TEXT/NARRATIVE: 33 yo female presents with a L sided LEVINE associated with nausea, but no vomiting. No fever. No nasal discharge or post nasal drip. Has some photophobia and neck stiffness. Has a hx of migraine, but this is worse and different she says. Has a hx of HTN and has not been taking her BP med for the past 3 mos due to not having insurance. Says he BP has been running "high normal" off her med and her BP at home with her cuff this morning was in the 160's systolic. Onset: Today Onset Date: 09/03/18 Duration: Hour(s): Location: Reports: Head Quality: Reports: Ache Severity: Severe Improves with: Reports: None Worsens with: Reports: Other (time) Context: Reports: Other (see HPI) Associated Symptoms: Reports: Headaches, Nausea/Vomiting (no vomiting). 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 History: menorrhagia with irregular cycle Neurological History: Reports: Migraines, Seizure Psychiatric History: Reports: Anxiety, Depression, PTSD, Suicide Attempt Endocrine/Metabolic History: Reports: Obesity/BMI 30+ - Infectious Disease History Infectious Disease History: Reports: Chicken Pox - Past Surgical History GI Surgical History: Reports: Cholecystectomy Female Surgical History: Reports: Other (See Below) Other Female Surgeries/Procedures: partial hysterectomy kidney stone removal Endocrine Surgical History: Reports: Other (See Below) Other Endocrine Surgeries/Procedures: pituitary tumor Social & Family History - Tobacco Use Smoking Status *Q: Heavy Tobacco Smoker Years of Tobacco use: 13 Packs/Tins Daily: 1 - Caffeine Use Caffeine Use: Reports: Soda - Recreational Drug Use Recreational Drug Use: No ED ROS GENERAL - Review of Systems Review Of Systems: See Below Constitutional: Reports: No Symptoms HEENT: Reports: Other (mild photophobia) Respiratory: Reports: No Symptoms Cardiovascular: Reports: No Symptoms Endocrine: Reports: No Symptoms GI/Abdominal: Reports: Nausea. Denies: Diarrhea, Vomiting : Reports: No Symptoms Musculoskeletal: Reports: Neck Pain Skin: Reports: No Symptoms Neurological: Reports: Headache. Denies: Difficulty Walking, Change in Speech, Gait Disturbance Psychiatric: Reports: No Symptoms - Physical Exam Exam: See Below Exam Limited By: No Limitations General Appearance: Alert, WD/WN, No Apparent Distress, Obese Eye Exam: Bilateral Eye: Normal Inspection Ears: Normal External Exam, Normal Canal, Hearing Grossly Normal, Normal TMs Nose: Normal Inspection, No Blood Throat/Mouth: Normal Inspection, Normal Lips, Normal Oropharynx, Normal Voice, No Airway Compromise Neck: Normal Inspection, Supple, Non-Tender Respiratory/Chest: No Respiratory Distress, Lungs Clear, Normal Breath Sounds Cardiovascular: Regular Rate, Rhythm, No Edema Neuro Exam (Abbreviated): Alert, Oriented, CN II-XII Intact, Normal Cognition, No Motor/Sensory Deficits Extremities: Normal Inspection Psychiatric: Normal Affect, Normal Mood Skin Exam: Warm, Dry, Intact, Normal Color, No Rash Course - Vital Signs Text/Narrative:: LEVINE mostly gone, BP better, but still too high. Last Recorded V/S: Last Vital Signs Temp 35.6 C 09/03/18 10:54 Pulse 89 09/03/18 11:31 Resp 18 09/03/18 10:54 BP 181/107 H 09/03/18 12:18 Pulse Ox 94 L 09/03/18 11:10 - Orders/Labs/Meds Labs: Laboratory Tests 09/03/18 09/03/18 Range/Units 11:18 11:18 WBC 9.4 (4.5-11.0) K/uL RBC 5.29 (3.30-5.50) M/uL Hgb 15.1 H (12.0-15.0) g/dL Hct 43.9 (36.0-48.0) % MCV 83 (80-98) fL MCH 29 (27-31) pg MCHC 34 (32-36) % Plt Count 217 (150-400) K/uL Sodium 142 (140-148) mmol/L Potassium 3.5 L (3.6-5.2) mmol/L Chloride 104 (100-108) mmol/L Carbon Dioxide 30 (21-32) mmol/L Anion Gap 11.5 (5.0-14.0) mmol/L BUN 8 (7-18) mg/dL Creatinine 0.7 (0.6-1.0) mg/dL Est Cr Clr Drug Dosing 98.71 mL/min Estimated GFR (MDRD) > 60 (>60) Glucose 103 (74-106) mg/dL Calcium 8.9 (8.5-10.1) mg/dL C-Reactive Protein 0.45 H (0.0-0.3) mg/dL Meds: Medications Discontinued Medications Generic Name Dose Route Start Last Admin Trade Name Freq PRN Reason Stop Dose Admin Diphenhydramine HCl 25 mg 09/03/18 11:15 09/03/18 11:32 Benadryl IVPUSH 09/03/18 11:16 25 mg ONETIME ONE Administration Lactated Ringer's 1,000 mls @ 150 mls/hr 09/03/18 11:15 Ringers, Lactated IV ASDIRECTED ERIC Lactated Ringer's 1,000 mls @ 1,000 mls/hr 09/03/18 11:20 09/03/18 11:39 Ringers, Lactated IV 09/03/18 12:19 1,000 mls/hr BOLUS ONE Administration Ketorolac Tromethamine 60 mg 09/03/18 11:12 Toradol IM 09/03/18 11:13 ONETIME ONE Ketorolac Tromethamine 30 mg 09/03/18 11:15 09/03/18 11:32 Toradol IVPUSH 09/03/18 11:16 30 mg ONETIME ONE Administration Metoprolol Tartrate 50 mg 09/03/18 11:12 09/03/18 11:31 Lopressor PO 09/03/18 11:13 50 mg ONETIME ONE Administration Ondansetron HCl 4 mg 09/03/18 11:13 Zofran Odt PO 09/03/18 11:14 ONETIME ONE Prochlorperazine Edisylate 10 mg 09/03/18 11:15 09/03/18 11:32 Compazine IVPUSH 09/03/18 11:16 10 mg ONETIME ONE Administration Triamterene/HCTZ 1 each 09/03/18 11:13 09/03/18 11:31 Maxzide 25-37.5 Mg PO 09/03/18 11:14 1 each ONETIME ONE Administration Departure - Departure Time of Disposition: 12:30 Disposition: Home, Self-Care 01 Condition: Fair Clinical Impression: HTN, goal below 130/80 Headache Qualifiers: Headache type: unspecified Headache chronicity pattern: acute headache Intractability: not intractable Qualified Code(s): R51 - Headache - Discharge Information *PRESCRIPTION DRUG MONITORING PROGRAM REVIEWED*: No *COPY OF PRESCRIPTION DRUG MONITORING REPORT IN PATIENT HOMA: No Instructions: Hypertension, [id number]-Mtee Referrals: Sophie Unger NP [Primary Care Provider] - Forms: ED Department Discharge Additional Instructions: Resume your BP med tonight. Avoid salt. Recheck with your provider timo. Return as needed.
[2018-09-03] MEDS ORDERED: Lactated Ringers 1,000 ML IV ONE (11:20)
[2018-09-03 12:17] VITALS: PULSE 87
[2018-09-03 12:18] VITALS: BP 181/107
== END 2018-09-03 12:45 | disposition home or self-care (01) ==
LOC: JP.ED 10:33
DX: I10 Essential (primary) hypertension (principal); R11.0 Nausea; F17.210 Nicotine dependence, cigarettes, uncomplicated; Z90.49 Acquired absence of other specified parts of digestive tract
CPT/HCPCS: 36415; 80048; 85027; 86140; 96361; 96374; 96375; 99284; A9270; J0780; J1200; J1885; J7120

== ENCOUNTER 2020-08-03 07:56 | Inpatient (IN) | payer MEDICAID ==
[~2020-08-03 07:56] MED LIST: Dexamethasone 4 MG/ML SDV ONE; Glycopyrrolate 0.2 MG/ML 5 ML MDV ONE; Neostigmine Methylsulfate 1 MG/ML 5 ML Syringe ONE; Ondansetron 4 MG/2 ML SDV ONE; Propofol 200 MG/20 ML SDV ONE; Rocuronium 50 MG/5 ML Vial ONE; Succinylcholine 200 MG/10 ML MDV ONE; fentaNYL 250 MCG/5 ML SDV ONE
[2020-08-03] MEDS ORDERED: Acetaminophen 500 MG Tab PO ONE (08:15)
[2020-08-03] MEDS ORDERED: Dextrose 5%-Lactated Ringers 1,000 ML IV SCH (09:00)
[2020-08-03 09:05] LABS: CORONAVIRUS COVID-19 NAA NEGATIVE (NEGATIVE)
[2020-08-03] MEDS ORDERED: Linezolid 600 MG in Premix Bag 1 BAG IV ONE (09:30)
[2020-08-03] MEDS ORDERED: Lidocaine 1% with EPINEPHrine 1:100,000 50 ML MDV ONE (10:05)
[2020-08-03] MEDS ORDERED: Bupivacaine 0.5% 50 ML MDV ONE (10:05)
[2020-08-03] MEDS ORDERED: Lidocaine 1% 50 ML MDV ONE (10:05)
[2020-08-03] MEDS ORDERED: Bupivacaine 0.5%/EPINEPHrine 1:200,000 50 ML MDV ONE (10:05)
--- NOTE | 2020-08-03 10:05 | PCM.HP.2 ---
H&P History of Present Illness - General Date of Service: 08/03/20 Source of Information: Patient History Limitations: Reports: No Limitations - History of Present Illness Initial Comments - Free Text/Narative: 2 - 3 week history of right labial abscess. Tested postive for MRSA in Clinic. Location: Reports: Other (Right Labia) Quality: Reports: Ache, Burning, Dull, Pressure Improves with: Reports: None Worsens with: Reports: None Associated Symptoms: Reports: No Other Symptoms Right Vaginal Pain Score (Numeric/FACES): 5 - Related Data Allergies/Adverse Reactions: Allergies Allergy/AdvReac Type Severity Reaction Status Date / Time No Known Allergies Allergy Verified 03/06/18 22:43 Home Medications: Home Meds Potassium Chloride [Klor-Con M20] 20 meq PO BID 08/02/20 [History] Spironolactone [Aldactone] 25 mg PO DAILY 08/02/20 [History] Sulfamethoxazole/Trimethoprim [Bactrim Ds Tablet] 1 each PO BID 08/02/20 [History] lisinopriL [Lisinopril] 20 mg PO BID 08/02/20 [History] Chlorthalidone 25 mg PO DAILY 08/03/20 [History] Citalopram [Citalopram HBr] 20 mg PO DAILY 08/03/20 [History] hydrALAZINE [Apresoline] 50 mg PO BID 08/03/20 [History] lisinopriL [Lisinopril] 20 mg PO BID 08/03/20 [History] Past Medical History HEENT History: Reports: Other (See Below) Other HEENT History: dental abcess Cardiovascular History: Reports: Hypertension Gastrointestinal History: Reports: Cholelithiasis 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 History: Reports: Renal Calculus 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: Dysfunctional Uterine Bleeding, Polycystic Ovaries, P regnancy, Spontaneous Other OB/BYN History: menorrhagia with irregular cycle Musculoskeletal History: Reports: Fracture Neurological History: Reports: Migraines, Seizure Psychiatric History: Reports: Anxiety, Depression, PTSD, Suicide Attempt Endocrine/Metabolic History: Reports: Obesity/BMI 30+ Dermatologic History: Reports: Psoriasis - Infectious Disease History Infectious Disease History: Reports: Chicken Pox, MRSA - Past Surgical History HEENT Surgical History: Reports: None Cardiovascular Surgical History: Reports: None GI Surgical History: Reports: Cholecystectomy, Colonoscopy, EGD Female Surgical History: Reports: Breast Biopsy, Hysterectomy, Other (See Below) Endocrine Surgical History: Reports: Other (See Below) Other Endocrine Surgeries/Procedures: pituitary tumor Neurological Surgical History: Reports: Scoliosis Musculoskeletal Surgical History: Reports: None Dermatological Surgical History: Reports: None Social & Family History - Family History Family Medical History: No Pertinent Family History - Tobacco Use Tobacco Use Status *Q: Current Every Day Tobacco User Years of Tobacco use: 18 Packs/Tins Daily: 0.5 - Caffeine Use Caffeine Use: Reports: Soda - Recreational Drug Use Recreational Drug Use: No H&P Review of Systems - Review of Systems: Review Of Systems: Comprehensive ROS is negative, except as noted in HPI. Exam - Exam Exam: See Below - Vital Signs Vital Signs: Last Vital Signs Temp 96.4 F L 08/03/20 08:26 Pulse 89 08/03/20 08:26 Resp 16 08/03/20 08:26 BP 166/108 H 08/03/20 08:26 Pulse Ox 97 08/03/20 08:26 Weight: 232 lb 3 oz - Exam General: Alert, Oriented, Cooperative HEENT: PERRLA Neck: Supple, Trachea Midline Lungs: Clear to Auscultation, Normal Respiratory Effort Cardiovascular: Regular Rate, Regular Rhythm GI/Abdominal Exam: Soft, Non-Tender (Female) Exam: Deferred (exam was done yesterday in clinic by Reid Foster MD ) Rectal (Female) Exam: Deferred Back Exam: Normal Inspection, Full Range of Motion Extremities: Normal Inspection, Normal Range of Motion Skin: Warm, Dry, Intact Neurological: Cranial Nerves Intact Neuro Extensive - Mental Status: Alert, Oriented x3, Normal Mood/Affect Neuro Extensive - Motor, Sensory, Reflexes: CN II-XII Intact, Normal Gait Psychiatric: Alert, Normal Affect, Normal Mood - Patient Data Lab Results Last 24 hrs: Laboratory Results - last 24 hr 08/03/20 08/03/20 08/03/20 Range/Units 08:15 08:15 08:27 WBC 6.5 (4.5-11.0) K/uL RBC 5.01 (3.30-5.50) M/uL Hgb 14.5 (12.0-15.0) g/dL Hct 41.9 (36.0-48.0) % MCV 84 (80-98) fL MCH 29 (27-31) pg MCHC 35 (32-36) % Plt Count 167 (150-400) K/uL Sodium 141 (140-148) mmol/L Potassium 3.5 L (3.6-5.2) mmol/L Chloride 103 (100-108) mmol/L Carbon Dioxide 28 (21-32) mmol/L Anion Gap 13.5 (5.0-14.0) mmol/L BUN 10 (7-18) mg/dL Creatinine 0.8 (0.6-1.0) mg/dL Est Cr Clr Drug Dosing 81.19 mL/min Estimated GFR (MDRD) > 60 (>60) Glucose 132 H (74-106) mg/dL Calcium 8.7 (8.5-10.1) mg/dL Influenza Type A RNA Negative (NEGATIVE) RSV RNA (INAAT) Negative (NEGATIVE) Influenza Type B RNA Negative (NEGATIVE) SARS-CoV-2 RNA (LALI) Negative (NEGATIVE) Result Diagrams: 08/03/20 08:15 08/03/20 08:15 Sepsis Event Note - Focused Exam Vital Signs: Vital Signs Temp Pulse Resp BP Pulse Ox 08/03/20 08:26 96.4 F L 89 16 166/108 H 97 - Problem List (1) Labial abscess SNOMED Code(s): 270622192 ICD Code: N76.4 - ABSCESS OF VULVA Status: Acute Current Visit: Yes Problem List Initiated/Reviewed/Updated: Yes Orders Last 24hrs: Active Orders 24 hr Category Date Time Status RT Incentive Spirometry [RC] ASDIRECTED Care 08/03/20 08:15 Active Dextrose 5%-Lactated Ringers 1,000 ml Med 08/03/20 09:00 Active IV ASDIRECTED Linezolid [Zyvox] 600 mg Med 08/03/20 09:30 Active Premix Bag 1 bag IV ONETIME Sequential Compression Device [OM.PC] Routine Oth 08/03/20 08:15 Ordered Medication Orders Dextrose/Lactated Ringer's (Dextrose 5%-Lactated Ringers) 1,000 mls @ 100 mls/hr IV ASDIRECTED ERIC Last Admin: 08/03/20 08:59 Dose: 100 mls/hr Documented by: MELISSA Linezolid 600 mg/ Premix 300 mls @ 300 mls/hr IV ONETIME ONE Stop: 08/03/20 10:29 Assessment/Plan Comment:: Right Labia Abscess After preoperative evaluation and discussion of possible risks and complication patient wishes to proceed with surgical procedure. Patient cleared for general anesthesia. Angella Munoz 08/03/2020 - Mortality Measure Prognosis:: Good
[2020-08-03] MEDS ORDERED: Bacitracin Oint 28.35 GM Tube ONE (10:06)
[2020-08-03] MEDS ORDERED: Mupirocin Oint 22 GM Tube ONE (10:06)
[2020-08-03] MEDS ORDERED: Midazolam 1 MG/ML 2 ML SDV ONE ×4 (10:37→11:04)
[2020-08-03] MEDS ORDERED: levETIRAcetam 500 MG in Sodium Chloride 0.9% 100 ML IV ONE (11:00)
[2020-08-03] MEDS ORDERED: levETIRAcetam 2,000 MG in Sodium Chloride 0.9% 100 ML IV ONE ×2 (12:00→15:00)
--- NOTE | 2020-08-03 13:56 | CT ---
Head wo Cont CLINICAL HISTORY: Seizures COMPARISON: 2019 TECHNIQUE: Transverse scans were obtained from the base of the skull through the vertex without IV contrast on a multislice, multidetector CT scanner. Auto dosage reduction and iterative reconstruction techniques employed. FINDINGS: No focal abnormal parenchymal density is identified. There is no mass effect, hemorrhage, or extraaxial collection. The basal cisterns and sulci over the convexities are normal. The ventricles are normal. IMPRESSION: No acute intracranial process
[2020-08-03] MEDS ORDERED: Acetaminophen 325 MG Tab PO PRN (14:00)
[2020-08-03] MEDS ORDERED: Ondansetron 4 MG/2 ML SDV IV PRN (14:00)
[2020-08-03] MEDS ORDERED: Sodium Chloride 0.9% 10 ML Syringe FLUSH PRN (14:00)
[2020-08-03] MEDS ORDERED: oxyCODONE 5 MG Tab PO PRN (14:00)
[2020-08-03] MEDS ORDERED: Polyethylene Glycol 3350 Powder 17 GM Packet PO PRN (14:00)
[2020-08-03] MEDS: Sodium Chloride 0.9% 1,000 ML IV SCH ×2 (14:12→22:48)
[2020-08-03] MEDS: LORazepam 2 MG/ML SDV IVPUSH PRN ×2 (14:27→21:03)
--- NOTE | 2020-08-03 14:57 | PCM.HP.2 ---
H&P History of Present Illness - General Date of Service: 08/03/20 Admit Problem/Dx: Source of Information: Family, Provider, RN Notes Reviewed History Limitations: Reports: Altered Mental Status (Decreased level of consciousness secondary to sedating medications and post ictal state) - History of Present Illness Initial Comments - Free Text/Narative: Ms. Enrique is a 35-year-old woman who I was asked to see in [facility] because of recurrent seizures. Currently she does have a past history of seizures but has not required medical therapy. She was admitted to outpatient surgery today for drainage of labial cysts/abscesses, with cultured MRSA from the clinic. Procedure was completed without complications during the procedure and with use of general anesthetic. She has been on oral antibiotic therapy with Septra DS and did receive IV Zyvox after surgery. When I saw her she had already had several seizures in [facility]. These were generalized seizures involving both arms both legs and torso. She had received Versed 4 mg total by the time I saw her and unfortunately continued to experience some seizure activity. She received an additional 2 mg of Versed and was then given 500 mg of IV Keppra. Again she continued to experience seizure activity and received 2 more milligrams of Versed and was then given 2 g of Keppra IV. Seizure activity seemed to settle down and the plan was to proceed with admission for monitoring and further loading of Keppra. Since then she has had 3-4 more seizures and she is now receiving another 2 g of IV Keppra she is also received [address] scan of the head without contrast was obtained and showed no significant abnormalities. She intermittently has been slightly more alert and does complain of a headache. She has been unable to provide meaningful history concerning recent symptoms or events because of sedating medications and postic johnathon state. Right Vaginal Pain Score (Numeric/FACES): 5 headache Pain Score (Numeric/FACES): 6 - Related Data Allergies/Adverse Reactions: Allergies Allergy/AdvReac Type Severity Reaction Status Date / Time No Known Allergies Allergy Verified 03/06/18 22:43 Home Medications: Home Meds Potassium Chloride [Klor-Con M20] 20 meq PO BID 08/02/20 [History] Spironolactone [Aldactone] 25 mg PO DAILY 08/02/20 [History] Sulfamethoxazole/Trimethoprim [Bactrim Ds Tablet] 1 each PO BID 08/02/20 [History] lisinopriL [Lisinopril] 20 mg PO BID 08/02/20 [History] Chlorthalidone 25 mg PO DAILY 08/03/20 [History] Citalopram [Citalopram HBr] 20 mg PO DAILY 08/03/20 [History] hydrALAZINE [Apresoline] 50 mg PO BID 08/03/20 [History] lisinopriL [Lisinopril] 20 mg PO BID 08/03/20 [History] Past Medical History HEENT History: Reports: Other (See Below) Other HEENT History: dental abcess Cardiovascular History: Reports: Hypertension Gastrointestinal History: Reports: Cholelithiasis 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 History: Reports: 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: Dysfunctional 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 Bleeding, Polycystic Ovaries, , Spontaneous Other OB/BYN History: menorrhagia with irregular cycle Musculoskeletal History: Reports: Fracture Neurological History: Reports: Migraines, Seizure Psychiatric History: Reports: Anxiety, Depression, PTSD, Suicide Attempt Endocrine/Metabolic History: Reports: Obesity/BMI 30+ Dermatologic History: Reports: Psoriasis - Infectious Disease History Infectious Disease History: Reports: Chicken Pox, MRSA - Past Surgical History HEENT Surgical History: Reports: None Cardiovascular Surgical History: Reports: None GI Surgical History: Reports: Cholecystectomy, Colonoscopy, EGD Female Surgical History: Reports: Breast Biopsy, Hysterectomy, Other (See Below) Endocrine Surgical History: Reports: Other (See Below) Other Endocrine Surgeries/Procedures: pituitary tumor Neurological Surgical History: Reports: Scoliosis Musculoskeletal Surgical History: Reports: None Dermatological Surgical History: Reports: None Social & Family History - Family History Family Medical History: No Pertinent Family History - Tobacco Use Tobacco Use Status *Q: Current Every Day Tobacco User Years of Tobacco use: 18 Packs/Tins Daily: 0.5 - Caffeine Use Caffeine Use: Reports: Soda - Recreational Drug Use Recreational Drug Use: No H&P Review of Systems - Review of Systems: Review Of Systems: See Below General: Reports: ROS unobtainable (Postictal state, sedating medications) Exam - Exam Exam: See Below - Vital Signs Vital Signs: Last Vital Signs Temp 97 F 08/03/20 14:00 Pulse 84 08/03/20 13:05 Resp 16 08/03/20 14:00 BP 182/106 H 08/03/20 14:00 Pulse Ox 96 08/03/20 14:00 Weight: 232 lb 3 oz - Exam Quality Assessment: DVT Prophylaxis General: Sedated, Lethargic HEENT: Conjunctiva Clear, Mucosa Moist & [place], Normal Nasal Septum, Posterior Pharynx Clear, Pupils Equal, Pupils Reactive Neck: Supple, Trachea Midline, +2 Carotid Pulse wo Bruit Lungs: Clear to Auscultation, Normal Respiratory Effort Cardiovascular: Regular Rate, Regular Rhythm, Normal S1, Normal S2. No: Systolic Murmur, Diastolic Murmur GI/Abdominal Exam: Soft, Non-Tender, No Organomegaly, No Distention Back Exam: Normal Inspection, Full Range of Motion Extremities: Non-Tender, No Pedal Edema Skin: Warm, Dry Neurological: Cranial Nerves Intact, Normal Tone, Sensation Intact. No: Focal Deficit - Patient Data Lab Results Last 24 hrs: Laboratory Results - last 24 hr 08/03/20 08/03/20 08/03/20 Range/Units 08:15 08:15 08:27 WBC 6.5 (4.5-11.0) K/uL RBC 5.01 (3.30-5.50) M/uL Hgb 14.5 (12.0-15.0) g/dL Hct 41.9 (36.0-48.0) % MCV 84 (80-98) fL MCH 29 (27-31) pg MCHC 35 (32-36) % Plt Count 167 (150-400) K/uL Sodium 141 (140-148) mmol/L Potassium 3.5 L (3.6-5.2) mmol/L Chloride 103 (100-108) mmol/L Carbon Dioxide 28 (21-32) mmol/L Anion Gap 13.5 (5.0-14.0) mmol/L BUN 10 (7-18) mg/dL Creatinine 0.8 (0.6-1.0) mg/dL Est Cr Clr Drug Dosing 81.19 mL/min Estimated GFR (MDRD) > 60 (>60) Glucose 132 H (74-106) mg/dL Calcium 8.7 (8.5-10.1) mg/dL Influenza Type A RNA Negative (NEGATIVE) RSV RNA (INAAT) Negative (NEGATIVE) Influenza Type B RNA Negative (NEGATIVE) SARS-CoV-2 RNA (LALI) Negative (NEGATIVE) Result Diagrams: 08/03/20 08:15 08/03/20 08:15 Alex Results Last 24 hrs: Microbiology 08/03/20 10:27 Gram Stain - Final Other - Abscess Sepsis Event Note - Focused Exam Vital Signs: Vital Signs Temp Pulse Resp BP Pulse Ox 08/03/20 14:00 97 F 16 182/106 H 96 08/03/20 13:05 97.2 F 84 14 146/99 H 97 08/03/20 13:00 97.0 F 84 14 160/104 H 97 08/03/20 12:55 82 14 131/97 H 97 08/03/20 12:50 85 14 144/96 H 97 08/03/20 12:45 96.4 F L 83 14 142/95 H 98 08/03/20 12:40 82 14 143/94 H 96 08/03/20 12:35 84 14 149/97 H 96 08/03/20 12:31 98.2 F 86 14 147/100 H 97 08/03/20 12:26 82 14 142/95 H 97 08/03/20 12:21 91 14 144/97 H 97 08/03/20 12:16 85 14 160/98 H 97 08/03/20 12:11 96.1 F L 89 14 147/101 H 97 08/03/20 12:06 88 14 152/99 H 97 08/03/20 12:01 91 14 162/101 H 96 08/03/20 11:55 97.5 F 89 14 143/101 H 96 08/03/20 11:51 91 14 148/100 H 97 08/03/20 11:45 84 14 137/88 96 08/03/20 11:41 96.4 F L 92 14 152/96 H 97 08/03/20 11:36 88 12 143/99 H 97 08/03/20 11:31 94 14 154/98 H 97 08/03/20 11:26 93 16 144/98 H 97 08/03/20 11:21 96.6 F L 98 18 168/96 H 96 08/03/20 11:15 114 H 18 168/111 H 98 08/03/20 11:10 91 12 161/99 H 98 08/03/20 11:05 96.8 F L 97 16 158/96 H 98 08/03/20 11:00 94 16 172/111 H 97 08/03/20 10:55 97 16 163/96 H 98 08/03/20 10:50 96 16 179/101 H 96 08/03/20 10:45 96.6 F L 95 16 157/99 H 94 L 08/03/20 08:26 96.4 F L 89 16 166/108 H 97 *Q Meaningful Use (ADM) - VTE Risk Assess *Q Each Risk Factor Represents 1 Point: Obesity ( BMI > 25 kg/m2) Total Score 1 Point Risk Factors: 1 Each Risk Factor Represents 2 Points: None Total Score 2 Point Risk Factors: 0 Each Risk Factor Represents 3 Points: None Total Score 3 Point Risk Factors: 0 Each Risk Factor Represents 5 Points: None Total Score 5 Point Risk Factors: 0 Venous Thromboembolism Risk Factor Score *Q: 1 - Problem List (1) Seizures SNOMED Code(s): 03577376 ICD Code: R56.9 - UNSPECIFIED CONVULSIONS Status: Acute Current Visit: Yes Problem List Initiated/Reviewed/Updated: Yes Orders Last 24hrs: Active Orders 24 hr Category Date Time Status Patient Status [ADT] Routine ADT 08/03/20 14:00 Active Ambulate [RC] QID Care 08/03/20 14:00 Active Height and Weight [RC] DAILY Care 08/03/20 14:00 Active Intake and Output [RC] QSHIFT Care 08/03/20 14:00 Active Notify Provider Vital Signs [RC] ASDIRECTED Care 08/03/20 14:00 Active Oxygen Therapy [RC] PRN Care 08/03/20 14:00 Active Peripheral IV Care [RC] . DIRECTED Care 08/03/20 14:00 Active Up With Assistance [RC] ASDIRECTED Care 08/03/20 14:00 Active Up to Chair [RC] QID Care 08/03/20 14:00 Active VTE/DVT Education [RC] Per Unit Routine Care 08/03/20 14:00 Active Vital Signs [RC] Q4H Care 08/03/20 14:00 Active 2 Gram Sodium Diet [DIET] Diet 08/03/20 Lunch Active BASIC METABOLIC PANEL,BMP [CHEM] AM Lab 08/04/20 05:11 Ordered CBC WITH AUTO DIFF [HEME] AM Lab 08/04/20 05:11 Ordered CULTURE ANAEROBIC [RM] Routine Lab 08/03/20 10:27 Results CULTURE WOUND + SMEAR [RM] Routine Lab 08/03/20 10:27 Results MAGNESIUM [CHEM] AM Lab 08/04/20 05:11 Ordered Acetaminophen [TylenoL] Med 08/03/20 14:00 Active 650 mg PO Q4H PRN Chlorthalidone Med 08/04/20 09:00 Active 25 mg PO DAILY Citalopram [Celexa] Med 08/04/20 09:00 Active 20 mg PO DAILY LORazepam [Ativan] Med 08/03/20 14:00 Active 1 mg IVPUSH Q30M PRN Ondansetron [Zofran] Med 08/03/20 14:00 Active 4 mg IV Q4H PRN Potassium Chloride [Klor-Con M20] Med 08/03/20 21:00 Active 20 meq PO BID Sodium Chloride 0.9% [Normal Saline] 1,000 ml Med 08/03/20 14:00 Active IV ASDIRECTED Sodium Chloride 0.9% [Saline Flush] Med 08/03/20 14:00 Active 10 ml FLUSH ASDIRECTED PRN Spironolactone [Aldactone] Med 08/04/20 09:00 Active 25 mg PO DAILY hydrALAZINE [Apresoline] Med 08/03/20 21:00 Active 50 mg PO BID levETIRAcetam [Keppra] Med 08/03/20 21:00 Active 2,000 mg PO BID levETIRAcetam [Keppra] 2,000 mg Med 08/03/20 15:00 Active Sodium Chloride 0.9% [Normal Saline] 100 ml IV ONETIME lisinopriL [Prinivil] Med 08/03/20 21:00 Active 20 mg PO BID oxyCODONE Med 08/03/20 14:00 Active 5 mg PO Q4H PRN polyethylene glycoL 3350 [MiraLAX] Med 08/03/20 14:00 Active 17 gm PO DAILY PRN Peripheral IV Insertion Adult [OM.PC] Routine Oth 08/03/20 14:00 Ordered Seizure Precautions [OM.PC] Routine Oth 08/03/20 14:00 Ordered Sequential Compression Device [OM.PC] Per Unit Routine Oth 08/03/20 14:00 Ordered Sequential Compression Device [OM.PC] Routine Oth 08/03/20 08:15 Ordered Resuscitation Status Routine Resus Stat 08/03/20 13:52 Ordered Medication Orders Acetaminophen (Acetaminophen 325 Mg Tab) 650 mg PO Q4H PRN PRN Reason: Pain (Mild 1-3)/fever Chlorthalidone (Chlorthalidone 25 Mg Tab) 25 mg PO DAILY [facility] Citalopram Hydrobromide (Citalopram 20 Mg Tab) 20 mg PO DAILY [facility] Hydralazine HCl (Hydralazine 25 Mg Tab) 50 mg PO BID [facility] Sodium Chloride (Normal Saline) 1,000 mls @ 125 mls/hr IV ASDIRECTED EIRC Last Admin: 08/03/20 14:12 Dose: 125 mls/hr Documented by: JACQUELIN Levetiracetam 2,000 mg/ Sodium (Chloride) 120 mls @ 400 mls/hr IV ONETIME ONE Stop: 08/03/20 15:17 Last Admin: 08/03/20 14:38 Dose: 400 mls/hr Documented by: JACQUELIN Levetiracetam (Levetiracetam 500 Mg/5 Ml Solution Ml 473 Ml Bottle) 2,000 mg PO BID [facility] Lisinopril (Lisinopril 20 Mg Tab) 20 mg PO BID [facility] Lorazepam (Lorazepam 2 Mg/Ml Sdv) 1 mg IVPUSH Q30M PRN PRN Reason: Seizures Last Admin: 08/03/20 14:27 Dose: 1 mg Documented by: JACQUELIN Ondansetron HCl (Ondansetron 4 Mg/2 Ml Sdv) 4 mg IV Q4H PRN PRN Reason: Nausea/Vomiting Oxycodone HCl (Oxycodone 5 Mg Tab) 5 mg PO Q4H PRN PRN Reason: Pain (moderate 4-6) Polyethylene Glycol (Polyethylene Glycol 3350 Powder 17 Gm Packet) 17 gm PO DAILY PRN PRN Reason: Constipation Potassium Chloride (Potassium Chloride 20 Meq Tab.Er) 20 meq PO BID [facility] Sodium Chloride (Sodium Chloride 0.9% 10 Ml Syringe) 10 ml FLUSH ASDIRECTED PRN PRN Reason: Keep Vein Open Spironolactone (Spironolactone 25 Mg Tab) 25 mg PO DAILY [facility] Assessment/Plan Comment:: ASSESSMENT AND PLAN SEIZURES-multiple seizures today following procedure for drainage of labial ab scesses under general anesthetic. She has been on antibiotic therapy with Septra DS and did receive 1 dose of Zyvox after surgery, which may be a potential contributing factor. She has received a total of 2500 mg of Keppra as well as recurrent doses of Versed and now lorazepam. She continues to e xperience some seizure activity. -Keppra, additional 2000 mg IV now -If she continues to experience seizure activity after most recent dose of Keppra consider transfer to tertiary care center. -If seizures improve with current intervention then plan to proceed with oral Keppra 2000 mg every 12 hours. -Outpatient follow-up with neurology -MRI in a.m. LABIAL ABSCESSES-status post surgical drainage earlier today by Dr. Foster. Cultures from surgery are pending but she has grown out MRSA from cultures obtained earlier at the clinic. -Hold Zyvox and Septra because of possible contribution to seizures -Clindamycin 300 mg every 6 hours MAINTENANCE ISSUES -DVT prophylaxis; SCUDs -GI prophylaxis; not indicated -Diaz catheter; not indicated -Nutrition; 2 g sodium diet -Nicotine dependence; not required CODE STATUS-FULL CODE ADMISSION STATUS-patient will be admitted to inpatient status, expect at least a 2 night hospital stay for evaluation and management of problems as outlined above. At the time of this admission I do not reasonably expected evaluation and management of this problem will require more than a 96 hour hospital stay. DISPOSITION-anticipate discharge to home after the hospital stay. PRIMARY CARE PROVIDER-Dr. Arora - Mortality Measure Prognosis:: Good
[2020-08-03] MEDS ORDERED: HYDROmorphone 0.5 MG/0.5 ML Syringe IVPUSH PRN (16:22)
[2020-08-03] MEDS ORDERED: Clindamycin HCl 150 MG Cap PO SCH (16:30)
[2020-08-03] MEDS ORDERED: Ketorolac 30 MG/ML SDV IVPUSH ONE (19:41)
[2020-08-03] MEDS: hydrALAZINE 25 MG Tab PO SCH (21:00)
[2020-08-03] MEDS: Lisinopril 20 MG Tab PO SCH (21:00)
[2020-08-03] MEDS: Potassium Chloride 20 MEQ Tab.ER PO SCH (21:00)
[2020-08-03] MEDS: levETIRAcetam 500 MG/5 ML Solution ML 473 ml Bottle PO SCH (21:00)
[2020-08-04 06:22] VITALS: PULSE 87
[2020-08-04] MEDS: Lisinopril 20 MG Tab PO SCH (08:10)
[2020-08-04] MEDS: hydrALAZINE 25 MG Tab PO SCH (08:11)
[2020-08-04] MEDS: Potassium Chloride 20 MEQ Tab.ER PO SCH (08:11)
[2020-08-04] MEDS ORDERED: Chlorthalidone 25 MG Tab PO SCH (09:00)
[2020-08-04] MEDS ORDERED: Magnesium Sulfate/Water 2 GM in Premix Bag 1 BAG IV ONE (09:00)
[2020-08-04] MEDS ORDERED: Citalopram 20 MG Tab PO SCH (09:00)
[2020-08-04] MEDS ORDERED: Spironolactone 25 MG Tab PO SCH (09:00)
[2020-08-04] MEDS ORDERED: Gadoteridol 279.3 MG/ML 20 ML SDV IV SCH (09:15)
--- NOTE | 2020-08-04 10:07 | PCM.DCSUM1 ---
Discharge Summary - Hospital Course Brief History: Ms. Enrique is a 35-year-old woman who was admitted from [facility] for further management of seizures after outpatient surgical procedure. - Discharge Data Discharge Date: 08/04/20 Discharge Disposition: DC/Tfer to Acute Hospital 02 Condition: Serious - Referral to Home Health Primary Care Physician: Elie Jaramillo NP - Discharge Diagnosis/Problem(s) (1) Seizures SNOMED Code(s): 99955286 ICD Code: R56.9 - UNSPECIFIED CONVULSIONS Status: Acute Current Visit: Yes (2) MRSA (methicillin resistant Staphylococcus aureus) SNOMED Code(s): 669556132 ICD Code: A49.02 - METHICILLIN RESIS STAPH INFECTION, UNSP SITE Status: Acute Current Visit: No (3) Labial abscess SNOMED Code(s): 926934426 ICD Code: N76.4 - ABSCESS OF VULVA Status: Acute Current Visit: Yes - Patient Summary/Data Hospital Course: Ms. Enrique is a 35-year-old woman who I was asked to see in [facility] because of recurrent seizures. She does have a past history of seizures but has not required medical therapy. She was admitted to outpatient surgery today for drainage of labial cysts/abscesses, with cultured MRSA from the clinic. Procedure was completed without complications during the procedure and with use of general anesthetic. She has been on oral antibiotic therapy with Septra DS and did receive IV Zyvox after surgery. When I saw her she had already had several seizures in [facility]. These were generalized seizures involving both arms both legs and torso. She had received Versed 4 mg total by the time I saw her and unfortunately continued to experience some seizure activity. She received an additional 2 mg of Versed and was then given 500 mg of IV Keppra. Again she continued to experience seizure activity and received 2 more milligrams of Versed and was then given 2 g of Keppra IV. Seizure activity seemed to settle down and the plan was to proceed with admission for monitoring and further loading of Keppra. Since then she has had 3-4 more seizures and she is now receiving another 2 g of IV Keppra she is also received [address] scan of the head without contrast was obtained and showed no significant abnormalities. She intermittently has been slightly more alert and does complain of a headache. She has been unable to provide meaningful history concerning recent symptoms or events because of sedating medications and postictal state. After the second 2000 mg dose of Keppra seizures improved significantly and she had only 1 or 2 more during the afternoon. In the evening she was started on Keppra 2 g p.o. every 12 hours. She continued to experience significant headache and was treated with Toradol, following that the headache and nausea resolved. She was stable through the night but unfortunately this morning experienced 2 more seizures that were witnessed by nursing staff. MRI has been obtained although report is still pending at the time of this dictation. Because of recurrent seizures this morning she will be transferred to tertiary care center for further evaluation and management. She will be transferred to [facility] in [facility] via [facility]. CT scan and MRI images will be reported to the [facility] PACS system. She was treated with IV clindamycin per recommendations of surgery for management of her MRSA infection following recent surgical debridement. Dressing changes should be performed daily and she should have follow-up appointment with Dr. Foster next Friday. - Patient Instructions Diet: Low Sodium Activity: As Tolerated Driving: Do Not Drive Other/Special Instructions: Patient will be transferred to [facility] in [facility] via [facility] - Discharge Plan *PRESCRIPTION DRUG MONITORING PROGRAM REVIEWED*: Not Applicable *COPY OF PRESCRIPTION DRUG MONITORING REPORT IN PATIENT HOMA: Not Applicable Home Medications: Home Meds Potassium Chloride [Klor-Con M20] 20 meq PO BID 08/02/20 [History] Spironolactone [Aldactone] 25 mg PO DAILY 08/02/20 [History] lisinopriL [Lisinopril] 20 mg PO BID 08/02/20 [History] Chlorthalidone 25 mg PO DAILY 08/03/20 [History] Citalopram [Citalopram HBr] 20 mg PO DAILY 08/03/20 [History] hydrALAZINE [Apresoline] 50 mg PO BID 08/03/20 [History] lisinopriL [Lisinopril] 20 mg PO BID 08/03/20 [History] Clindamycin Phosphate [Cleocin] 300 mg IV Q6H sdv 08/04/20 [Rx] levETIRAcetam [Keppra] 2,000 mg PO BID ml 08/04/20 [Rx] Patient Handouts: Incision and Drainage, Care After, Seizure, Adult, [id number] - Discharge Summary/Plan Comment DC Time >30 min.: No - Patient Data Vitals - Most Recent: Last Vital Signs Temp 97.7 F 08/04/20 07:32 Pulse 87 08/04/20 06:00 Resp 12 08/04/20 07:32 BP 167/107 H 08/04/20 08:11 Pulse Ox 96 08/04/20 07:32 Weight - Most Recent: 232 lb 2.983 oz I&O - Last 24 hours: Intake & Output 08/03/20 08/04/20 08/04/20 22:59 06:59 14:59 Intake Total 760 1816 Output Total 900 150 500 Balance -140 1666 -500 Lab Results - Last 24 hrs: Laboratory Results - last 24 hr 08/04/20 08/04/20 Range/Units 06:31 06:31 WBC 11.4 H (4.5-11.0) K/uL RBC 4.81 (3.30-5.50) M/uL Hgb 14.1 (12.0-15.0) g/dL Hct 40.6 (36.0-48.0) % MCV 84 (80-98) fL MCH 29 (27-31) pg MCHC 35 (32-36) % Plt Count 186 (150-400) K/uL Neut % (Auto) 87.4 H (36-66) % Lymph % (Auto) 7.8 L (24-44) % [place] % (Auto) 4.5 (2-6) % Eos % (Auto) 0.1 L (2-4) % Baso % (Auto) 0.2 (0-1) % Sodium 142 (140-148) mmol/L Potassium 3.6 (3.6-5.2) mmol/L Chloride 105 (100-108) mmol/L Carbon Dioxide 26 (21-32) mmol/L Anion Gap 11.0 (5.0-14.0) mmol/L BUN 10 (7-18) mg/dL Creatinine 0.6 (0.6-1.0) mg/dL Est Cr Clr Drug Dosing 108.26 mL/min Estimated GFR (MDRD) > 60 (>60) Glucose 126 H (74-106) mg/dL Calcium 8.3 L (8.5-10.1) mg/dL Magnesium 1.7 L (1.8-2.4) mg/dL DESHAWN Results - Last 24 hrs: Microbiology 08/03/20 10:27 Gram Stain - Final Other - Abscess Wound Culture - Preliminary Anaerobic Culture - Preliminary NO GROWTH AFTER 1 DAY Med Orders - Current: Current Medications Acetaminophen (Acetaminophen 325 Mg Tab) 650 mg PO Q4H PRN PRN Reason: Pain (Mild 1-3)/fever Chlorthalidone (Chlorthalidone 25 Mg Tab) 25 mg PO DAILY [facility] Last Admin: 08/04/20 08:11 Dose: 25 mg Documented by: Citalopram Hydrobromide (Citalopram 20 Mg Tab) 20 mg PO DAILY [facility] Last Admin: 08/04/20 08:11 Dose: 20 mg Documented by: Hydralazine HCl (Hydralazine 25 Mg Tab) 50 mg PO BID [facility] Last Admin: 08/04/20 08:11 Dose: 50 mg Documented by: Hydromorphone HCl (Hydromorphone 0.5 Mg/0.5 Ml Syringe) 0.5 mg IVPUSH Q2H PRN PRN Reason: Pain (severe 7-10) Last Admin: 08/03/20 17:13 Dose: 0.5 mg Documented by: Clindamycin Phosphate 300 mg/ (Sodium Chloride) 52 mls @ 100 mls/hr IV Q6H [facility] Last Admin: 08/04/20 07:56 Dose: 100 mls/hr Documented by: Magnesium Sulfate 2 gm/ Premix 50 mls @ 25 mls/hr IV ONETIME ONE Stop: 08/04/20 10:59 Levetiracetam (Levetiracetam 500 Mg/5 Ml Solution Ml 473 Ml Bottle) 2,000 mg PO BID [facility] Last Admin: 08/03/20 21:00 Dose: 2,000 mg Documented by: Lisinopril (Lisinopril 20 Mg Tab) 20 mg PO BID [facility] Last Admin: 08/04/20 08:10 Dose: 20 mg Documented by: Lorazepam (Lorazepam 2 Mg/Ml Sdv) 1 mg IVPUSH Q30M PRN PRN Reason: Seizures Last Admin: 08/03/20 21:03 Dose: 1 mg Documented by: Ondansetron HCl (Ondansetron 4 Mg/2 Ml Sdv) 4 mg IV Q4H PRN PRN Reason: Nausea/Vomiting Last Admin: 08/03/20 17:51 Dose: 4 mg Documented by: Oxycodone HCl (Oxycodone 5 Mg Tab) 5 mg PO Q4H PRN PRN Reason: Pain (moderate 4-6) Polyethylene Glycol (Polyethylene Glycol 3350 Powder 17 Gm Packet) 17 gm PO DAILY PRN PRN Reason: Constipation Potassium Chloride (Potassium Chloride 20 Meq Tab.Er) 20 meq PO BID [facility] Last Admin: 08/04/20 08:11 Dose: 20 meq Documented by: Sodium Chloride (Sodium Chloride 0.9% 10 Ml Syringe) 10 ml FLUSH ASDIRECTED PRN PRN Reason: Keep Vein Open Spironolactone (Spironolactone 25 Mg Tab) 25 mg PO DAILY [facility] Last Admin: 08/04/20 08:11 Dose: 25 mg Documented by: Discontinued Medications Acetaminophen (Acetaminophen 500 Mg Tab) 1,000 mg PO ONETIME ONE Stop: 08/03/20 08:16 Last Admin: 08/03/20 08:29 Dose: 1,000 mg Documented by: Bacitracin (Bacitracin Oint 28.35 Gm Tube) Confirm Administered Dose 0 gm .ROUTE .STK-MED ONE Stop: 08/03/20 10:07 Bupivacaine HCl (Bupivacaine 0.5% 50 Ml Mdv) Confirm Administered Dose 50 ml .ROUTE .STK-MED ONE Stop: 08/03/20 10:06 Last Admin: 08/03/20 10:30 Dose: 10 ml Documented by: Bupivacaine HCl/Epinephrine Bitart (Bupivacaine 0.5%/Epinephrine 1:200,000 50 Ml Mdv) Confirm Administered Dose 0 ml .ROUTE .STK-MED ONE Stop: 08/03/20 10:06 Clindamycin HCl (Clindamycin Hcl 150 Mg Cap) 300 mg PO Q6HR [facility] Last Admin: 08/03/20 17:51 Dose: 300 mg Documented by: Dexamethasone (Dexamethasone 4 Mg/Ml Sdv) Confirm Administered Dose 4 mg .ROUTE .STK-MED ONE Stop: 08/03/20 06:24 Fentanyl (Fentanyl 250 Mcg/5 Ml Sdv) Confirm Administered Dose 250 mcg .ROUTE .STK-MED ONE Stop: 08/03/20 06:24 Gadoteridol (Gadoteridol 279.3 Mg/Ml 20 Ml Sdv) 20 ml IV . DIRECTED [facility] Stop: 08/04/20 09:16 Last Admin: 08/04/20 09:51 Dose: 20 ml Documented by: Glycopyrrolate (Glycopyrrolate 0.2 Mg/Ml 5 Ml Mdv) Confirm Administered Dose 0 mg .ROUTE .STK-MED ONE Stop: 08/03/20 06:24 Dextrose/Lactated Ringer's (Dextrose 5%-Lactated Ringers) 1,000 mls @ 100 mls/hr IV ASDIRECTED [facility] Last Admin: 08/03/20 08:59 Dose: 100 mls/hr Documented by: Linezolid 600 mg/ Premix 300 mls @ 300 mls/hr IV ONETIME ONE Stop: 08/03/20 10:29 Last Admin: 08/03/20 10:05 Dose: 300 mls/hr Documented by: Levetiracetam 500 mg/ Sodium (Chloride) 105 mls @ 420 mls/hr IV ONETIME ONE Stop: 08/03/20 11:14 Last Admin: 08/03/20 11:09 Dose: 420 mls/hr Documented by: Levetiracetam 2,000 mg/ Sodium (Chloride) 120 mls @ 400 mls/hr IV ONETIME ONE Stop: 08/03/20 12:17 Last Admin: 08/03/20 11:59 Dose: 400 mls/hr Documented by: Sodium Chloride (Normal Saline) 1,000 mls @ 125 mls/hr IV ASDIRECTED [facility] Last Admin: 08/03/20 22:48 Dose: 125 mls/hr Documented by: Levetiracetam 2,000 mg/ Sodium (Chloride) 120 mls @ 400 mls/hr IV ONETIME ONE Stop: 08/03/20 15:17 Last Admin: 08/03/20 14:38 Dose: 400 mls/hr Documented by: Ketorolac Tromethamine (Ketorolac 30 Mg/Ml Sdv) 30 mg IVPUSH ONETIME ONE Stop: 08/03/20 19:42 Last Admin: 08/03/20 19:52 Dose: 30 mg Documented by: Lidocaine HCl (Lidocaine 1% 50 Ml Mdv) Confirm Administered Dose 0 ml .ROUTE .STK-MED ONE Stop: 08/03/20 10:06 Lidocaine/Epinephrine (Lidocaine 1% With Epinephrine 1:100,000 50 Ml Mdv) Confirm Administered Dose 50 ml .ROUTE .ST-MED ONE Stop: 08/03/20 10:06 Last Admin: 08/03/20 10:30 Dose: 10 ml Documented by: Midazolam HCl (Midazolam 1 Mg/Ml 2 Ml Sdv) Confirm Administered Dose 2 mg .ROUTE .ST-MED ONE Stop: 08/03/20 10:38 Midazolam HCl (Midazolam 1 Mg/Ml 2 Ml Sdv) Confirm Administered Dose 2 mg .ROUTE .ST-MED ONE Stop: 08/03/20 10:41 Midazolam HCl (Midazolam 1 Mg/Ml 2 Ml Sdv) Confirm Administered Dose 2 mg .ROUTE .ST-MED ONE Stop: 08/03/20 10:47 Midazolam HCl (Midazolam 1 Mg/Ml 2 Ml Sdv) Confirm Administered Dose 2 mg .ROUTE .STK-MED ONE Stop: 08/03/20 11:05 Mupirocin (Mupirocin Oint 22 Gm Tube) Confirm Administered Dose 0 gm .ROUTE . [facility]-MED ONE Stop: 08/03/20 10:07 Neostigmine Methylsulfate (Neostigmine Methylsulfate 1 Mg/Ml 5 Ml Syringe) Confirm Administered Dose 0 mg .ROUTE .[facility]-MED ONE Stop: 08/03/20 06:24 Ondansetron HCl (Ondansetron 4 Mg/2 Ml Sdv) Confirm Administered Dose 4 mg .ROUTE .ST-MED ONE Stop: 08/03/20 06:24 Propofol (Propofol 200 Mg/20 Ml Sdv) Confirm Administered Dose 200 mg .ROUTE .ST-MED ONE Stop: 08/03/20 06:24 Rocuronium [place] (Rocuronium 50 Mg/5 Ml Vial) Confirm Administered Dose 50 mg .ROUTE .ST-MED ONE Stop: 08/03/20 06:24 Succinylcholine Chloride (Succinylcholine 200 Mg/10 Ml Mdv) Confirm Administered Dose 200 mg .ROUTE .[facility]-MED ONE Stop: 08/03/20 06:24 - Exam General: Reports: Alert, Oriented, Cooperative, Mild Distress Lungs: Reports: Clear to Auscultation, Normal Respiratory Effort Cardiovascular: Reports: Regular Rate, Regular Rhythm, No Murmurs GI/Abdominal Exam: Soft, Non-Tender, No Organomegaly, No Distention Extremities: Non-Tender, No Pedal Edema
[2020-08-04] MEDS: levETIRAcetam 500 MG/5 ML Solution ML 473 ml Bottle PO SCH (10:22)
--- NOTE | 2020-08-04 10:48 | MR ---
Brain w wo Cont CLINICAL HISTORY: Seizures COMPARISON: Noncontrast head CT 08/03/2020 TECHNIQUE: Multiple pulse sequences were obtained through the brain in the axial, coronal, and sagittal planes both pre-and post IV contrast infusion gadolinium-based contrast. All images were obtained on a 1.5 Marium unit. FINDINGS: Diffusion images show no abnormal signal. There is no focal mass lesion. There is no hemorrhage, edema, or extraaxial collection. The basal cisterns and sulci over the convexities are normal. The ventricles are normal. Postcontrast images show no enhancing lesions or abnormal vascular patterns. IMPRESSION: Essentially negative MR brain complete
[2020-08-04 11:12] VITALS: BP 187/104
--- NOTE | 2020-08-20 10:28 | OR ---
DATE OF PROCEDURE: 08/03/2020 SURGEON: Reid Foster MD PREOPERATIVE DIAGNOSIS: Right labial abscess. POSTOPERATIVE DIAGNOSIS: Right labial abscess. OPERATIVE PROCEDURE: Excision of right labial abscess (15897). ANESTHESIA: General. INDICATIONS FOR PROCEDURE: This is a 35-year-old presenting with recurrent labial abscess on the right side. The plan was to proceed with drainage and excision of this, most likely leaving the wound open. Potential risks involving the procedure including bleeding and infection were reviewed, and the patient wishes to proceed. DETAILS OF PROCEDURE: The patient was taken to the operating room and placed in a supine position. After general endotracheal anesthesia was induced, the right labial area was prepped and draped. A vertically-oriented elliptical incision was then made around the area of the abscess. The incision was margin length, by definition was length of the elliptical incision at this point, that being 1.4 cm. It was carried down through the skin and subcutaneous tissue and the planes of dissection were eventually established where there was no abscess-type material present, i.e. a clean level of excision was accomplished. The wound was then packed open with iodoform gauze and anesthetized with 1% lidocaine mixed with Marcaine and the procedure then concluded. Upon emerging from anesthesia, the patient developed some seizure activity which the reports she has had in the past, and she did have some seizure activity in the recovery room and management of that will continue from this point with the assistance of Dr. Flowers. Reid Foster MD /[id number]
== END 2020-08-04 12:01 | DRG 982 ==
LOC: JP.SDSSCHI 07:56 → JP.SDS 07:56 → EDSTATUS 10:30 → JP.ICU 13:00
PROVIDERS: ADMIT Surgery; ATTEND Surgery
PROC: 0UBM0ZZ Excision of Vulva, Open Approach (ICD-10-PCS; principal; 2020-08-03)
DX: R56.9 Unspecified convulsions (principal); N76.4 Abscess of vulva; Z68.41 Body mass index [BMI] 40.0-44.9, adult; B95.62 Methicillin resistant Staphylococcus aureus infection as the cause of diseases classified elsewhere; I10 Essential (primary) hypertension; G43.909 Migraine, unspecified, not intractable, without status migrainosus; F41.9 Anxiety disorder, unspecified; F32.9 Major depressive disorder, single episode, unspecified; F43.10 Post-traumatic stress disorder, unspecified; E66.9 Obesity, unspecified; F17.210 Nicotine dependence, cigarettes, uncomplicated; N93.8 Other specified abnormal uterine and vaginal bleeding; Z20.822 Contact with and (suspected) exposure to COVID-19; Z86.19 Personal history of other infectious and parasitic diseases; Z90.49 Acquired absence of other specified parts of digestive tract; Z90.710 Acquired absence of both cervix and uterus; Z87.442 Personal history of urinary calculi; Z79.899 Other long term (current) drug therapy
CPT/HCPCS: 0241U; 36415; 70450; 70450-26; 70553; 70553-26; 80048; 83735; 85025; 85027; 87070; 87075; 87077; 87186; 87205; 88304; A9270-GY; A9579; J0330; J1100; J1170; J1885; J1953; J2001; J2020; J2060; J2250; J2405; J2704; J2710; J3010; J3475; J3490; J7030; J7121

== ENCOUNTER 2021-05-18 21:56 | Emergency (ER) | payer MEDICAID ==
[2021-05-18 22:14] VITALS: BP 222/118; PULSE 103
== END 2021-05-18 22:41 | disposition home or self-care (01) ==
LOC: JP.ED 21:56
DX: S67.21XA Crushing injury of right hand, initial encounter (principal); S67.190A Crushing injury of right index finger, initial encounter; S61.111A Laceration without foreign body of right thumb with damage to nail, initial encounter; S61.310A Laceration without foreign body of right index finger with damage to nail, initial encounter; E66.9 Obesity, unspecified; F17.210 Nicotine dependence, cigarettes, uncomplicated; I10 Essential (primary) hypertension; Z68.38 Body mass index [BMI] 38.0-38.9, adult; Z79.899 Other long term (current) drug therapy; W22.8XXA Striking against or struck by other objects, initial encounter
CPT/HCPCS: 12001; 73130-26-RT; 73130-RT; 99282; 99283-25

== ENCOUNTER 2022-07-30 20:53 | Emergency (ER) | payer MEDICAID ==
[2022-07-30] MEDS ORDERED: methylPREDNISolone Sodium Succinate 125 MG/2 ML SDV IM ONE (21:38)
[2022-07-30 21:45] VITALS: BP 204/117; PULSE 101
== END 2022-07-30 22:15 | disposition home or self-care (01) ==
LOC: JP.ED 20:53
DX: L03.114 Cellulitis of left upper limb (principal); R59.1 Generalized enlarged lymph nodes; K21.9 Gastro-esophageal reflux disease without esophagitis; E11.9 Type 2 diabetes mellitus without complications; I10 Essential (primary) hypertension; E66.9 Obesity, unspecified; Z68.36 Body mass index [BMI] 36.0-36.9, adult; F17.210 Nicotine dependence, cigarettes, uncomplicated
CPT/HCPCS: 96372; 99283; J2930

== ENCOUNTER 2022-12-10 18:31 | Emergency (ER) | payer MEDICAID ==
[2022-12-10 19:27] LABS: APPEARANCE,URINE CLEAR (CLEAR); BILIRUBIN,URINE NEGATIVE (NEGATIVE); COLOR,URINE YELLOW (YELLOW); GLUCOSE,URINE NEGATIVE (NEGATIVE); KETONES,URINE NEGATIVE (NEGATIVE); LEUKOCYTE ESTERASE,URINE NEGATIVE (NEGATIVE); NITRITE,URINE NEGATIVE (NEGATIVE); OCCULT BLOOD,URINE MODERATE (NEGATIVE); PROTEIN,URINE NEGATIVE (NEGATIVE); UROBILINOGEN,URINE 0.2 EU/dL (0.2-1.0)
[2022-12-10 19:36] VITALS: BP 214/131; PULSE 109
[2022-12-10 19:42] LABS: AMORPHOUS SEDIMENT,URINE NOT SEEN; BACTERIA,URINE RARE; EPITHELIAL CELLS,URINE RARE; MUCUS,URINE FEW; RBC,URINE 50-75 (0-5); WBC,URINE 0-5 (0-5)
[2022-12-10 19:59] LABS: EOSINOPHILS ABSOLUTE AUTO 0.31 K/uL (0.00-0.40); EOSINOPHILS PERCENT AUTO 3.1 % (0.0-5.4); HEMATOCRIT 39.1 % (34.3-46.0); HEMOGLOBIN 14.1 g/dL (11.2-15.5); IMMATURE GRAN ABSOLUTE AUTO 0.03 K/uL (0.00-0.23); IMMATURE GRAN PERCENT AUTO 0.3 % (0.0-0.7); LYMPHOCYTES ABSOLUTE AUTO 2.18 K/uL (0.8-3.3); MEAN CORPUSCULAR HEMOGLOBIN 29.6 pg (31.6-35.5); MEAN CORPUSCULAR HGB CONC 36.1 g/dL (31.6-35.5); MEAN CORPUSCULAR VOLUME 82.1 fL (81.4-99.0); MONOCYTES ABSOLUTE AUTO 0.45 K/uL (0.20-0.90); MONOCYTES PERCENT AUTO 4.5 % (3.3-12.6); NEUTROPHILS ABSOLUTE AUTO 6.86 K/uL (1.0-7.6); NEUTROPHILS PERCENT AUTO 69.1 % (40.0-78.1); PLATELET COUNT,PLT 229 K/uL (130-375); RED BLOOD CELL COUNT 4.76 M/uL (3.77-5.24); WHITE BLOOD CELL COUNT,WBC 9.9 K/uL (3.2-11.0)
[2022-12-10 20:19] LABS: A/G RATIO 1.3 (1.2-2.2); ALANINE AMINOTRANSFERASE,ALT 44 U/L (12-78); ALBUMIN 3.9 g/dL (3.4-5.0); ALKALINE PHOSPHATASE 63 U/L (46-116); ASPARTATE AMNIOTRANSFERASE,AST 25 U/L (15-37); BILIRUBIN TOTAL 0.3 mg/dL (0.2-1.0); BLOOD UREA NITROGEN,BUN 12 mg/dL (7-18); CALCIUM 8.9 mg/dL (8.5-10.1); CARBON DIOXIDE,CO2 32 mmol/L (21-32); CHLORIDE,CL 101 mmol/L (100-108); CREATININE 0.8 mg/dL (0.6-1.0); EST CRCL DRUG DOSING (CG) 83.14 mL/min; ESTIMATED GFR 97 mL/min (>60); GLUCOSE RANDOM 100 mg/dL (74-106)
[2022-12-10 20:23] LABS: ANION GAP 9.9 mmol/L (5.0-14.0); SODIUM,NA 140 mmol/L (140-148)
[2022-12-10 20:25] LABS: POTASSIUM,K 2.9 mmol/L (3.6-5.2)
[2022-12-10] MEDS ORDERED: Potassium Chloride 20 MEQ Tab.ER PO ONE (20:25)
== END 2022-12-10 21:50 | disposition home or self-care (01) ==
LOC: JP.ED 18:31
DX: R31.0 Gross hematuria (principal); N20.0 Calculus of kidney; E87.6 Hypokalemia; F17.210 Nicotine dependence, cigarettes, uncomplicated; E66.9 Obesity, unspecified; E11.9 Type 2 diabetes mellitus without complications; I10 Essential (primary) hypertension; Z86.16 Personal history of COVID-19
CPT/HCPCS: 36415; 74176; 80053; 81001; 85025; 99284; A9270

== ENCOUNTER 2023-01-19 19:18 | Emergency (ER) | payer MEDICAID ==
[2023-01-19 20:09] LABS: BASOPHILS ABSOLUTE AUTO 0.08 K/uL (0.00-0.10); BASOPHILS PERCENT AUTO 0.8 % (0.1-1.3); EOSINOPHILS ABSOLUTE AUTO 0.31 K/uL (0.00-0.40); HEMOGLOBIN 14.5 g/dL (11.2-15.5); IMMATURE GRAN PERCENT AUTO 0.2 % (0.0-0.7); LYMPHOCYTES ABSOLUTE AUTO 1.95 K/uL (0.8-3.3); LYMPHOCYTES PERCENT AUTO 18.9 % (11.4-47.7); MEAN CORPUSCULAR HEMOGLOBIN 29.3 pg (31.6-35.5); MEAN CORPUSCULAR HGB CONC 35.4 g/dL (31.6-35.5); MEAN CORPUSCULAR VOLUME 82.8 fL (81.4-99.0); MONOCYTES PERCENT AUTO 3.9 % (3.3-12.6); NEUTROPHILS ABSOLUTE AUTO 7.54 K/uL (1.0-7.6); NEUTROPHILS PERCENT AUTO 73.2 % (40.0-78.1); PLATELET COUNT,PLT 236 K/uL (130-375); RED BLOOD CELL COUNT 4.95 M/uL (3.77-5.24); WHITE BLOOD CELL COUNT,WBC 10.3 K/uL (3.2-11.0)
[2023-01-19 20:11] LABS: IMMATURE GRAN ABSOLUTE AUTO 0.02 K/uL (0.00-0.23)
[2023-01-19 20:11] LABS: APPEARANCE,URINE CLEAR (CLEAR); BILIRUBIN,URINE NEGATIVE (NEGATIVE); COLOR,URINE YELLOW (YELLOW); GLUCOSE,URINE NEGATIVE (NEGATIVE); KETONES,URINE NEGATIVE (NEGATIVE); LEUKOCYTE ESTERASE,URINE NEGATIVE (NEGATIVE); NITRITE,URINE NEGATIVE (NEGATIVE); OCCULT BLOOD,URINE MODERATE (NEGATIVE); PROTEIN,URINE 30 mg/dL (NEGATIVE); UROBILINOGEN,URINE 0.2 EU/dL (0.2-1.0)
[2023-01-19 20:21] LABS: A/G RATIO 1.2 (1.2-2.2); ALANINE AMINOTRANSFERASE,ALT 42 U/L (12-78); ALBUMIN 3.8 g/dL (3.4-5.0); ALKALINE PHOSPHATASE 61 U/L (46-116); ASPARTATE AMNIOTRANSFERASE,AST 21 U/L (15-37); BILIRUBIN TOTAL 0.3 mg/dL (0.2-1.0); BLOOD UREA NITROGEN,BUN 8 mg/dL (7-18); C-REACTIVE PROTEIN 0.51 mg/dL (0.0-0.3); CALCIUM 8.3 mg/dL (8.5-10.1); CARBON DIOXIDE,CO2 29 mmol/L (21-32); CHLORIDE,CL 103 mmol/L (100-108); CREATININE 0.9 mg/dL (0.6-1.0); ESTIMATED GFR 84 mL/min (>60); GLUCOSE RANDOM 130 mg/dL (74-106); SODIUM,NA 142 mmol/L (140-148)
[2023-01-19 20:23] LABS: ANION GAP 12.9 mmol/L (5.0-14.0); POTASSIUM,K 2.9 mmol/L (3.6-5.2)
[2023-01-19 20:25] LABS: AMORPHOUS SEDIMENT,URINE NOT SEEN; BACTERIA,URINE RARE; EPITHELIAL CELLS,URINE RARE; MUCUS,URINE NOT SEEN; WBC,URINE 0-5 (0-5)
[2023-01-19 21:18] VITALS: PULSE 83
[2023-01-19 21:40] VITALS: BP 212/113
[2023-01-19] MEDS: fentaNYL 50 MCG/ML SDV IVPUSH ONE (21:47)
== END 2023-01-19 22:15 | disposition home or self-care (01) ==
LOC: JP.ED 19:18
DX: N20.0 Calculus of kidney (principal); I10 Essential (primary) hypertension; F17.210 Nicotine dependence, cigarettes, uncomplicated; E66.9 Obesity, unspecified; Z68.39 Body mass index [BMI] 39.0-39.9, adult
CPT/HCPCS: 36415; 74176; 80053; 81001; 83690; 85025; 86140; 96374; 99284; J3010

== ENCOUNTER 2023-04-08 22:25 | Emergency (ER) | payer MEDICAID ==
[2023-04-08 23:24] LABS: BASOPHILS ABSOLUTE AUTO 0.08 K/uL (0.00-0.10); BASOPHILS PERCENT AUTO 0.8 % (0.1-1.3); EOSINOPHILS ABSOLUTE AUTO 0.23 K/uL (0.00-0.40); EOSINOPHILS PERCENT AUTO 2.4 % (0.0-5.4); HEMATOCRIT 41.1 % (34.3-46.0); HEMOGLOBIN 14.7 g/dL (11.2-15.5); IMMATURE GRAN ABSOLUTE AUTO 0.04 K/uL (0.00-0.23); IMMATURE GRAN PERCENT AUTO 0.4 % (0.0-0.7); LYMPHOCYTES ABSOLUTE AUTO 1.42 K/uL (0.8-3.3); LYMPHOCYTES PERCENT AUTO 14.5 % (11.4-47.7); MEAN CORPUSCULAR HEMOGLOBIN 29.1 pg (31.6-35.5); MEAN CORPUSCULAR HGB CONC 35.8 g/dL (31.6-35.5); MEAN CORPUSCULAR VOLUME 81.2 fL (81.4-99.0); MONOCYTES ABSOLUTE AUTO 0.55 K/uL (0.20-0.90); MONOCYTES PERCENT AUTO 5.6 % (3.3-12.6); NEUTROPHILS ABSOLUTE AUTO 7.44 K/uL (1.0-7.6); NEUTROPHILS PERCENT AUTO 76.3 % (40.0-78.1); PLATELET COUNT,PLT 233 K/uL (130-375); RED BLOOD CELL COUNT 5.06 M/uL (3.77-5.24); WHITE BLOOD CELL COUNT,WBC 9.8 K/uL (3.2-11.0)
[2023-04-08] MEDS: amLODIPine 5 MG Tab PO ONE (23:30)
[2023-04-08] MEDS: Losartan 50 MG Tab PO ONE (23:30)
[2023-04-08] MEDS: Ketorolac 15 MG/ML SDV IVPUSH ONE (23:31)
[2023-04-08] MEDS: droPERidol 5 MG/2 ML SDV IVPUSH ONE (23:31)
[2023-04-08 23:43] LABS: CREATININE 0.8 mg/dL (0.6-1.0); EST CRCL DRUG DOSING (CG) 83.14 mL/min; POTASSIUM,K 3.3 mmol/L (3.6-5.2)
[2023-04-08 23:46] LABS: ANION GAP 9.3 mmol/L (5.0-14.0)
[2023-04-09 00:02] LABS: CORONAVIRUS COVID-19 NAA NEGATIVE (NEGATIVE); INFLUENZA A NAA NEGATIVE (NEGATIVE); INFLUENZA B NAA NEGATIVE (NEGATIVE); RESPIRATORY SYNCYTIAL VIR NAA NEGATIVE (NEGATIVE)
[2023-04-09 00:32] VITALS: BP 180/107; PULSE 74
== END 2023-04-09 00:36 | disposition home or self-care (01) ==
LOC: JP.ED 22:25
DX: G44.1 Vascular headache, not elsewhere classified (principal); I10 Essential (primary) hypertension; K21.9 Gastro-esophageal reflux disease without esophagitis; F17.210 Nicotine dependence, cigarettes, uncomplicated; E66.9 Obesity, unspecified; Z90.710 Acquired absence of both cervix and uterus; Z79.899 Other long term (current) drug therapy; Z68.36 Body mass index [BMI] 36.0-36.9, adult
CPT/HCPCS: 0241U; 36415; 70450; 80048; 85025; 96374; 96375; 99284; A9270; J1790; J1885; 99283

== ENCOUNTER 2023-07-09 17:58 | Emergency (ER) | payer MEDICAID ==
[2023-07-09 19:30] LABS: BASOPHILS ABSOLUTE AUTO 0.08 K/uL (0.00-0.10); BASOPHILS PERCENT AUTO 0.9 % (0.1-1.3); EOSINOPHILS ABSOLUTE AUTO 0.32 K/uL (0.00-0.40); EOSINOPHILS PERCENT AUTO 3.6 % (0.0-5.4); HEMATOCRIT 39.8 % (34.3-46.0); HEMOGLOBIN 14.4 g/dL (11.2-15.5); IMMATURE GRAN ABSOLUTE AUTO 0.03 K/uL (0.00-0.23); IMMATURE GRAN PERCENT AUTO 0.3 % (0.0-0.7); LYMPHOCYTES ABSOLUTE AUTO 1.76 K/uL (0.8-3.3); LYMPHOCYTES PERCENT AUTO 19.5 % (11.4-47.7); MEAN CORPUSCULAR HEMOGLOBIN 29.6 pg (31.6-35.5); MEAN CORPUSCULAR HGB CONC 36.2 g/dL (31.6-35.5); MEAN CORPUSCULAR VOLUME 81.9 fL (81.4-99.0); MONOCYTES ABSOLUTE AUTO 0.48 K/uL (0.20-0.90); MONOCYTES PERCENT AUTO 5.3 % (3.3-12.6); NEUTROPHILS ABSOLUTE AUTO 6.34 K/uL (1.0-7.6); NEUTROPHILS PERCENT AUTO 70.4 % (40.0-78.1); PLATELET COUNT,PLT 235 K/uL (130-375); RED BLOOD CELL COUNT 4.86 M/uL (3.77-5.24)
[2023-07-09 19:59] LABS: A/G RATIO 1.1 (1.2-2.2); ALANINE AMINOTRANSFERASE,ALT 46 U/L (12-78); ALBUMIN 3.9 g/dL (3.4-5.0); ALKALINE PHOSPHATASE 61 U/L (46-116); ASPARTATE AMNIOTRANSFERASE,AST 25 U/L (15-37); BILIRUBIN TOTAL 0.3 mg/dL (0.2-1.0); BLOOD UREA NITROGEN,BUN 9 mg/dL (7-18); C-REACTIVE PROTEIN 0.58 mg/dL (<0.50); CALCIUM 9.3 mg/dL (8.5-10.1); CARBON DIOXIDE,CO2 31 mmol/L (21-32); CHLORIDE,CL 101 mmol/L (100-108); CREATININE 0.8 mg/dL (0.6-1.0); EST CRCL DRUG DOSING (CG) 82.33 mL/min; ESTIMATED GFR 97 mL/min (>60); GLUCOSE RANDOM 103 mg/dL (74-106); POTASSIUM,K 3.1 mmol/L (3.6-5.2); PROTEIN TOTAL,TP 7.3 g/dL (6.4-8.2); SODIUM,NA 140 mmol/L (140-148); TROPONIN I HIGH SENSITIVITY 4.9 pg/mL (<=60.3); TSH ULTRASENSITIVE 3.266 uIU/mL (0.358-3.740)
[2023-07-09 20:04] LABS: ANION GAP 11.1 mmol/L (5.0-14.0)
[2023-07-09] MEDS: Furosemide 40 MG/4 ML VIAL IVPUSH ONE (20:25)
[2023-07-09] MEDS: Labetalol 20 MG/4 ML Syringe IVPUSH ONE (20:26)
[2023-07-09 23:46] VITALS: BP 174/108; PULSE 73
== END 2023-07-09 23:46 | disposition home or self-care (01) ==
LOC: JP.ED 17:58
DX: I20.89 Other forms of angina pectoris (principal); I10 Essential (primary) hypertension; E66.01 Morbid (severe) obesity due to excess calories; F17.210 Nicotine dependence, cigarettes, uncomplicated; Z3A.41 41 weeks gestation of pregnancy; Z79.899 Other long term (current) drug therapy; Z86.16 Personal history of COVID-19; Z90.49 Acquired absence of other specified parts of digestive tract; Z90.710 Acquired absence of both cervix and uterus
CPT/HCPCS: 36415; 80053; 84443; 84484; 85025; 86140; 93005; 96374; 96375; 99285; J1920; J1940

== ENCOUNTER 2024-06-09 22:03 | Emergency (ER) | payer MEDICAID ==
[2024-06-09] MEDS ORDERED: Sodium Chloride 0.9% 10 ML Syringe FLUSH PRN (22:37)
[2024-06-09 23:05] LABS: BASOPHILS ABSOLUTE AUTO 0.08 K/uL (0.00-0.10); BASOPHILS PERCENT AUTO 0.8 % (0.1-1.3); EOSINOPHILS ABSOLUTE AUTO 0.29 K/uL (0.00-0.40); HEMATOCRIT 39.7 % (34.3-46.0); HEMOGLOBIN 14.1 g/dL (11.2-15.5); IMMATURE GRAN PERCENT AUTO 0.2 % (0.0-0.7); LYMPHOCYTES ABSOLUTE AUTO 1.61 K/uL (0.8-3.3); LYMPHOCYTES PERCENT AUTO 16.9 % (11.4-47.7); MEAN CORPUSCULAR HEMOGLOBIN 30.3 pg (31.6-35.5); MEAN CORPUSCULAR HGB CONC 35.5 g/dL (31.6-35.5); MEAN CORPUSCULAR VOLUME 85.4 fL (81.4-99.0); MONOCYTES ABSOLUTE AUTO 0.54 K/uL (0.20-0.90); MONOCYTES PERCENT AUTO 5.7 % (3.3-12.6); NEUTROPHILS ABSOLUTE AUTO 7.01 K/uL (1.0-7.6); NEUTROPHILS PERCENT AUTO 73.4 % (40.0-78.1); PLATELET COUNT,PLT 212 K/uL (130-375); RED BLOOD CELL COUNT 4.65 M/uL (3.77-5.24); WHITE BLOOD CELL COUNT,WBC 9.6 K/uL (3.2-11.0)
[2024-06-09 23:06] LABS: IMMATURE GRAN ABSOLUTE AUTO 0.02 K/uL (0.00-0.23)
[2024-06-09 23:33] LABS: A/G RATIO 1.1 (1.2-2.2); ALANINE AMINOTRANSFERASE,ALT 45 U/L (12-78); ALBUMIN 3.6 g/dL (3.4-5.0); ALKALINE PHOSPHATASE 69 U/L (46-116); ASPARTATE AMNIOTRANSFERASE,AST 24 U/L (15-37); BILIRUBIN TOTAL 0.2 mg/dL (0.2-1.0); BLOOD UREA NITROGEN,BUN 10 mg/dL (7-18); CALCIUM 8.6 mg/dL (8.5-10.1); CARBON DIOXIDE,CO2 32 mmol/L (21-32); CHLORIDE,CL 103 mmol/L (100-108); CREATININE 0.8 mg/dL (0.6-1.0); EST CRCL DRUG DOSING (CG) 81.53 mL/min; ESTIMATED GFR 96 mL/min (>60); GLUCOSE RANDOM 148 mg/dL (74-106); MAGNESIUM 1.9 mg/dL (1.8-2.4); POTASSIUM,K 3.1 mmol/L (3.6-5.2); PRO B-TYPE NATRIUR PEPT,BNPPRO 89 pg/mL (5-125); PROTEIN TOTAL,TP 6.8 g/dL (6.4-8.2); SODIUM,NA 143 mmol/L (140-148)
[2024-06-09 23:37] LABS: ANION GAP 11.1 mmol/L (5.0-14.0)
[2024-06-09] MEDS: Potassium Chloride 20 MEQ Tab.ER PO ONE (23:49)
[2024-06-10] MEDS: LORazepam 1 MG Tab PO ONE (00:15)
[2024-06-10] MEDS: LORazepam 2 MG/ML SDV IVPUSH ONE (02:26)
[2024-06-10] MEDS: Ondansetron 4 MG/2 ML SDV IVPUSH ONE (06:53)
[2024-06-10] MEDS: cloNIDine 0.1 MG Tab PO ONE (07:24)
[2024-06-10] MEDS: fentaNYL 50 MCG/ML SDV IVPUSH ONE (08:25)
[2024-06-10 11:41] VITALS: BP 157/93; PULSE 75
== END 2024-06-10 11:46 ==
LOC: JP.ED 22:03
DX: I10 Essential (primary) hypertension (principal); K21.9 Gastro-esophageal reflux disease without esophagitis; F17.210 Nicotine dependence, cigarettes, uncomplicated; Z86.16 Personal history of COVID-19; Z90.49 Acquired absence of other specified parts of digestive tract; Z90.710 Acquired absence of both cervix and uterus; Z79.899 Other long term (current) drug therapy
CPT/HCPCS: 36415; 71046; 80053; 83735; 83880; 84484; 85025; 85379; 93005; 93010; 96374; 96375; 99285; A9270; J2405; J3010

== ENCOUNTER 2024-10-30 21:54 | Emergency (ER) | payer MEDICAID ==
[2024-10-30 22:50] LABS: BASOPHILS ABSOLUTE AUTO 0.09 K/uL (0.00-0.10); BASOPHILS PERCENT AUTO 0.8 % (0.1-1.3); EOSINOPHILS ABSOLUTE AUTO 0.35 K/uL (0.00-0.40); EOSINOPHILS PERCENT AUTO 3.2 % (0.0-5.4); IMMATURE GRAN ABSOLUTE AUTO 0.04 K/uL (0.00-0.23); IMMATURE GRAN PERCENT AUTO 0.4 % (0.0-0.7); LYMPHOCYTES ABSOLUTE AUTO 1.74 K/uL (0.8-3.3); LYMPHOCYTES PERCENT AUTO 16.0 % (11.4-47.7); MONOCYTES ABSOLUTE AUTO 0.53 K/uL (0.20-0.90); MONOCYTES PERCENT AUTO 4.9 % (3.3-12.6); NEUTROPHILS ABSOLUTE AUTO 8.14 K/uL (1.0-7.6); NEUTROPHILS PERCENT AUTO 74.7 % (40.0-78.1); PLATELET COUNT,PLT 218 K/uL (130-375); RED BLOOD CELL COUNT 4.67 M/uL (3.77-5.24); WHITE BLOOD CELL COUNT,WBC 10.9 K/uL (3.2-11.0)
[2024-10-30] MEDS: Ketorolac 30 MG/ML SDV IVPUSH ONE (22:53)
[2024-10-30] MEDS: LORazepam 2 MG/ML SDV IVPUSH ONE (22:54)
[2024-10-30] MEDS: Sodium Chloride 0.9% 10 ML Syringe FLUSH PRN (22:54)
[2024-10-30 23:06] LABS: BLOOD UREA NITROGEN,BUN 8.0 mg/dL (7-18); CARBON DIOXIDE,CO2 34.0 mmol/L (21-32); CHLORIDE,CL 102.0 mmol/L (100-108); CREATININE 1.0 mg/dL (0.6-1.0); EST CRCL DRUG DOSING (CG) 65.22 mL/min; ESTIMATED GFR 73.0 mL/min (>60); GLUCOSE RANDOM 128.0 mg/dL (74-106); POTASSIUM,K 3.1 mmol/L (3.6-5.2); SODIUM,NA 140.0 mmol/L (140-148)
[2024-10-31 00:07] VITALS: BP 167/93; PULSE 91
== END 2024-10-31 00:06 | disposition home or self-care (01) ==
LOC: JP.ED 21:54
DX: N23 Unspecified renal colic (principal); Z79.899 Other long term (current) drug therapy
CPT/HCPCS: 36415; 74176; 80048; 84484; 85025; 93005; 96374; 96375; 99285; J1885; J2060

== ENCOUNTER 2025-01-13 16:10 | Emergency (ER) | payer MEDICAID ==
[2025-01-13 16:49] LABS: APPEARANCE,URINE CLEAR (CLEAR); GLUCOSE,URINE NEGATIVE (NEGATIVE); OCCULT BLOOD,URINE TRACE-INTACT (NEGATIVE)
[2025-01-13 16:51] LABS: SQUAMOUS EPITHELIAL CELLS,UR NOT SEEN /HPF; UROTHELIAL CELLS,URINE NOT SEEN /HPF
[2025-01-13 16:56] LABS: BASOPHILS ABSOLUTE AUTO 0.09 K/uL (0.00-0.10); BASOPHILS PERCENT AUTO 0.8 % (0.1-1.3); EOSINOPHILS ABSOLUTE AUTO 0.26 K/uL (0.00-0.40); EOSINOPHILS PERCENT AUTO 2.4 % (0.0-5.4); IMMATURE GRAN ABSOLUTE AUTO 0.09 K/uL (0.00-0.23); IMMATURE GRAN PERCENT AUTO 0.8 % (0.0-0.7); LYMPHOCYTES ABSOLUTE AUTO 1.70 K/uL (0.8-3.3); LYMPHOCYTES PERCENT AUTO 15.9 % (11.4-47.7); MONOCYTES ABSOLUTE AUTO 0.55 K/uL (0.20-0.90); MONOCYTES PERCENT AUTO 5.2 % (3.3-12.6); NEUTROPHILS ABSOLUTE AUTO 7.97 K/uL (1.0-7.6); NEUTROPHILS PERCENT AUTO 74.9 % (40.0-78.1); PLATELET COUNT,PLT 249 K/uL (130-375); RED BLOOD CELL COUNT 4.86 M/uL (3.77-5.24); WHITE BLOOD CELL COUNT,WBC 10.7 K/uL (3.2-11.0)
[2025-01-13 17:16] LABS: A/G RATIO 1.2 (1.2-2.2); ALANINE AMINOTRANSFERASE,ALT 31 U/L (12-78); ASPARTATE AMNIOTRANSFERASE,AST 15 U/L (15-37); BILIRUBIN TOTAL 0.3 mg/dL (0.2-1.0); BLOOD UREA NITROGEN,BUN 9 mg/dL (7-18); CARBON DIOXIDE,CO2 31 mmol/L (21-32); CHLORIDE,CL 101 mmol/L (100-108); CREATININE 0.7 mg/dL (0.6-1.0); EST CRCL DRUG DOSING (CG) 93.17 mL/min; ESTIMATED GFR 113 mL/min (>60); GLUCOSE RANDOM 104 mg/dL (74-106); POTASSIUM,K 3.3 mmol/L (3.6-5.2); PROTEIN TOTAL,TP 7.1 g/dL (6.4-8.2); SODIUM,NA 140 mmol/L (140-148)
[2025-01-13 17:55] VITALS: BP 194/98; PULSE 79
== END 2025-01-13 17:58 | disposition home or self-care (01) ==
LOC: JP.ED 16:10
DX: R07.89 Other chest pain (principal); I1A.0 Resistant hypertension; F17.200 Nicotine dependence, unspecified, uncomplicated; Z79.899 Other long term (current) drug therapy
CPT/HCPCS: 36415; 71046; 71046-26; 80053; 81001; 84484; 85025; 93005; 93010; 99285